=== PATIENT | male | born 1940 | race Caucasian/White ===

== ENCOUNTER 2019-02-22 11:41 | Emergency (ER) | payer MEDICARE, SELFPAY ==
[2019-02-22 11:42] VITALS: BP 90/56; PULSE 63; RESP 17; RESP 19; TEMP 36.4; O2SAT 97; O2SAT 98; BMI 29.0
--- NOTE | 2019-02-22 11:54 | RAD_ITS ---
STUDY: X-RAY CHEST REASON FOR EXAM: Male, 79 years old. Weakness. TECHNIQUE: Single AP portable view of the chest. COMPARISON: None. FINDINGS: A right-sided ventriculoperitoneal shunt tube is seen. Scattered calcified granulomas. There is no demonstrated pleural abnormality. Normal size heart. Normal mediastinum and arjun. Normal visualized pulmonary arteries. There is atherosclerotic tortuosity of the aortic arch and descending thoracic aorta. There are diffuse degenerative changes of the visualized thoracic spine. Normal visualized ribs, clavicles, and shoulders. There is no demonstrated abnormality of the visualized soft tissue structures of the upper abdomen. RAD/Chest 1 View (Portable) IMPRESSION: Scattered calcified granulomas. The lungs are clear. Electronically Signed: Willis Reynolds, at 14:44 EDT , Service support ,
--- NOTE | 2019-02-22 11:55 | EKG12_ITS ---
Test Reason : Blood Pressure : / mmHG Vent. Rate : 066 BPM Atrial Rate : 066 BPM P-R Int : 178 ms QRS Dur : 104 ms QT Int : 476 ms P-R-T Axes : 081 -13 029 degrees QTc Int : 499 ms Sinus rhythm with Premature atrial complexes Inferior infarct , age undetermined Abnormal ECG Confirmed by RAINE VILLANUEVA, DEMETRIUS ([id number]), editor in chief ROBERT WAYNE ([id number]) on 02/27/2019 8:21:57 AM Referred By: MELISA Confirmed By:DEMETRIUS NI MD
[2019-02-22 11:56] LABS: Bedside Glucose 106 mg/dL (70-110)
--- NOTE | 2019-02-22 11:57 | ED.VISSUMM ---
- ER Visit Summary Date of Service: 02/22/19 Chief Complaint: General weakness History of Present Illness: The patient is a 79 M who presents with general weakness that began today. Patient was at occupational therapy and use the restroom there. Patient came out of the restroom and was sitting at the registration desk when he was weak and bone. states he did not respond verbally to her. Patient has a history of a recent hemorrhagic stroke with right-sided weakness. states he is back to his baseline at this time. Patient denies any chest pain or shortness of breath. Patient denies any nausea or vomiting. Patient denies any recent fevers or chills. states patient did not pass out or lose consciousness. Physical Examination: Vital signs are stable except for slightly low blood pressure of 90/56. Patient is afebrile. Patient is in no acute distress. Oral mucosa is pink and moist. Neck is supple. Trachea is midline. There is no JVD. Heart was regular rate and rhythm with occasional ectopics. Lungs are clear and equal bilaterally. There is good respiratory effort noted. Abdomen is soft. Bowel sounds are normal. There is no tenderness. Cranial nerves II through XII are intact. There is right-sided weakness from prior CVA. There are no new focal neuro deficits noted. Test Results: CBC shows a mild anemia with a hemoglobin of 11.0 hematocrit of 33.8. Comprehensive metabolic profile was normal. Urinalysis does not show any evidence of urinary tract infection. Troponin was normal. Chest x-ray was obtained. There is no acute infiltrate. Emergency Department Course and Treatment: Patient was given IV fluids here. Patient felt better on reevaluation. Patient was instructed to follow-up with his primary care physician in 3 to 5 days for further evaluation. Patient understood and was agreeable with plan. All questions were answered. Disposition: Discharge home Impression: 1. Near syncope This note was generated with [employer] dictation software. It may contain incorrect words, spelling, and punctuation that were not noted in review of the chart prior to signing ED Disposition - Plan for ED Patient: Disposition: Home or Assisted Living Diagnosis: Near syncope Instructions: ED Near Syncope Unkn Referrals: Ross Ko MD [Primary Care Provider] - 3-5 Days
--- NOTE | 2019-02-22 12:00 | ED.DCSUM_ITS ---
- ER Visit Summary Date of Service: 02/22/19 Chief Complaint: General weakness History of Present Illness: The patient is a 79 M who presents with general weakness that began today. Patient was at occupational therapy and use the restroom there. Patient came out of the restroom and was sitting at the scar stration desk when he was weak and bone. states he did not respond verbally to her. Patient has a history of a recent hemorrhagic stroke with right-sided weakness. states he is back to his baseline at this time. Patient denies any chest pain or shortness of breath. Patient denies any nausea or vomiting. Patient denies any recent fevers or chills. states patient did not pass out or lose consciousness. Physical Examination: Vital signs are stable except for slightly low blood pressure of 90/56. Patient is afebrile. Patient is in no acute distress. Oral mucosa is pink and moist. Neck is supple. Trachea is midline. There is no JVD. Heart was regular rate and rhythm with occasional ectopics. Lungs are clear and equal bilaterally. There is good respiratory effort noted. Abdomen is soft. Bowel sounds are normal. There is no tenderness. Cranial nerves II through XII are intact. There is right-sided weakness from prior CVA. There are no new focal neuro deficits noted. Test Results: CBC shows a mild anemia with a hemoglobin of 11.0 hematocrit of 33.8. Comprehensive metabolic profile was normal. Urinalysis does not show any evidence of urinary tract infection. Troponin was normal. Chest x-ray was obtained. There is no acute infiltrate. Emergency Department Course and Treatment: Patient was given IV fluids here. Patient felt better on reevaluation. Patient was instructed to follow-up with his primary care physician in 3 to 5 days for further evaluation. Patient understood and was agreeable with plan. All questions were answered. Disposition: Discharge home Impression: 1. Near syncope This note was generated with [employer] dictation software. It may contain incorrect words, spelling, and punctuation that were not noted in review of the chart prior to signing ED Disposition - Plan for ED Patient: Disposition: Home or Assisted Living Diagnosis: Near syncope Instructions: ED Near Syncope Unkn Referrals: Ross Ko MD [Primary Care Provider] - 3-5 Days
--- NOTE | 2019-02-22 12:02 | NURSING ---
NO OLD EKGS
[2019-02-22 12:06] VITALS: BP 102/48; PULSE 70; RESP 15; O2SAT 97
[2019-02-22 12:21] LABS: Absolute Lymphocyte Count 1.42 X10^3/ul (0.83-4.51); Basophil# 0.02 X10^3/uL; Basophil% 0.2 % (0-1); Eosinophil# 0.14 X10^3/uL; Eosinophils% 1.5 % (0-5); Hematocrit 33.8 % (40-54); Lymphocyte # 1.42 X10^3/ul (4.0); Lymphocyte % 15.4 % (19-41); Mean Corp Hgb Conc 32.5 g/gl (32-36); Mean Corpuscular Hgb 31.7 pg (27.0-32.0); Mean Corpuscular Volume 97.4 fL (80-94); Mean Platelet Vol. 10.8 fl (6.2-12.0); Monocyte# 0.61 X10^3/uL; Monocyte% 6.6 % (0-10); Neutrophil # 7.03 X10^3/uL (2.7-7.7); Platelet Count 305 K/mm3 (150-450); RBC Distribution Width CV 14.2 % (11.6-14.6); RBC Distribution Width SD 48.3 fl (35.1-43.9); Red Blood Count 3.47 M/mm3 (4.6-6.2); White Blood Count 9.3 K/mm3 (4.4-11.0)
[2019-02-22 12:28] LABS: International Normalized Ratio 1.2; POSITIVE COUNT NO; POSITIVE DIFFERENTIAL NO; POSITIVE MORPHOLOGY NO; Prothrombin Time (Protime)PT. 14.5 SECONDS (11.7-14.9)
[2019-02-22 12:29] LABS: Partial Thromboplast Time 29.1 Seconds (24.1-36.2)
[2019-02-22 12:33] LABS: ALB/GLOB Ratio 0.7 RATIO (0.9-2.4); AST(SGOT) 30 U/L (15-37); Alanine Aminotransfer ALT/SGPT 36 U/L (16-61); Albumin, Serum 2.5 g/dL (3.2-5.0); Alkaline Phosphatase 72 U/L (45-117); Anion Gap 6 (5-15); BUN 17 mg/dL (7-18); BUN/Creat Ratio 19.7 RATIO (10-20); Calcium,Total 8.8 mg/dL (8.5-10.1); Chloride 102 mmol/L (98-107); Creatinine, Serum 0.86 mg/dL (0.70-1.30); EST Glomerular Filtration Rate 90 mL/min (>60); Est Glom Filt Rate - Afr Amer 109 mL/min (>60); Estimated Creatinine Clearance 68.51 ml/min; Globulin 3.6 g/dL (2.2-4.2); Glucose 97 mg/dL (74-106); Potassium 4.1 mmol/L (3.5-5.1); Protein, Total 6.1 g/dL (6.4-8.2); Sodium Level 137 mmol/L (136-145)
[2019-02-22 14:00] VITALS: BP 132/74; PULSE 74; RESP 15; O2SAT 97
[2019-02-22 14:30] LABS: Mucous, Urine 0 SEEN /hpf (<or=2+); Red Blood Cells-Urine 0 SEEN /hpf (0-5); Squamous Epithelial Cells - UA 0 SEEN /hpf (0-5)
[2019-02-22 14:38] LABS: Color, Urine Yellow (Yellow); Glucose, Dipstick Normal (Normal); Ketone-Dipstick Negative (Negative); Leukocyte Esterase-Dipstick 100 /ul (Negative); Nitrite-Dipstick Negative (Negative); Occult Blood-Urine 10 /ul (Negative); Protein-Dipstick Negative (Negative); Urine Bilirubin Dipstick Negative (Negative); Urine Clarity Sl. Cloudy (Clear); Urine Urobilinogen 1 mg/dl (Normal)
[2019-02-22 14:43] LABS: Bacteria 1+ /hpf (None Seen); White Blood Cells 0-5 SEEN /hpf (0-5)
[2019-02-22 16:24] VITALS: BP 145/68; PULSE 80; RESP 19; O2SAT 98
== END 2019-02-22 16:25 | disposition home or self-care (01) ==
PROVIDERS: Emergency Provider Emergency Medicine; Family Provider Family Medicine; PCP Family Medicine
DX: R55 Syncope and collapse (principal); I69.351 Hemiplegia and hemiparesis following cerebral infarction affecting right dominant side; D64.9 Anemia, unspecified; I49.1 Atrial premature depolarization; I48.91 Unspecified atrial fibrillation; Z79.899 Other long term (current) drug therapy
CPT/HCPCS: 71045; 80053; 81001; 82962; 84484; 85025; 85610; 85730; 93005; 99285; J7030; J7040; A4216

== ENCOUNTER 2019-06-04 20:26 | Emergency (ER) | payer OTHER, SELFPAY ==
[2019-06-04 20:27] VITALS: BP 146/87; PULSE 59; RESP 18; TEMP 36.7; O2SAT 100; BMI 24.7
--- NOTE | 2019-06-04 22:05 | ED.RN ---
PATIENT CAME IN VIA [facility] FROM [facility] C/O LOW BLOOD PRESSURE. ON ARRIVAL THE PATIENT'S VITALS WERE STABLE. PATIENT DID NOT HAVE ANY SYMPTOMS AT THIS TIME. HIS TOLD THIS NURSE THAT IT WOULD BE MORE UNCOMFORTABLE FOR HIM TO WAIT FOR A ROOM, SO THEY DECIDED TO LEAVE. I LOOKED AT THE TRACKER AND A ROOM WAS OPENING UP WITHIN A FEW MINUTES. I LET THEM KNOW THIS AND THEY STILL DECIDED TO LEAVE.
== END 2019-06-04 22:07 | disposition left against medical advice (07) ==
LOC: ED 21:19
PROVIDERS: Emergency Provider Emergency Medicine; Family Provider Family Medicine; PCP Family Medicine
DX: Z53.21 Procedure and treatment not carried out due to patient leaving prior to being seen by health care provider (principal)
CPT/HCPCS: 99281; J7030

== ENCOUNTER 2019-06-11 15:11 | Observation (INO) | payer MEDICARE, SELFPAY ==
[2019-06-11] VITALS (8 sets, daily range): BP systolic 115–164; BP diastolic 64–95; PULSE 57–68; RESP 13–18; TEMP 36.8–37; O2SAT 96–100; BMI 25.8; BMI 24.6; BMI 24.7
--- NOTE | 2019-06-11 16:00 | CT_ITS ---
STUDY: CT BRAIN WITHOUT CONTRAST REASON FOR EXAM: Male, 79 years old. Weakness, syncope. RADIATION DOSAGE (If Supplied By Facility): CTDIvol = ( 44.99 ) mGy, DLP = ( 863.60 ) mGycm TECHNIQUE: Transaxial CT imaging of the brain was performed without administration of intravenous contrast material. Individualized dose optimization techniques were used for this CT. COMPARISON: No relevant priors. FINDINGS: Normal soft tissue structures. Normal calvarium. There is moderate cerebral atrophy with widening of the extra-axial spaces and ventricular dilatation. There are areas of decreased attenuation within the white matter tracts of the supratentorial brain, consistent with microvascular disease changes. Ventricular shunt terminates in the right lateral ventricle. There is no intracranial hemorrhage. There are no findings of an acute ischemic infarction. Trace mucosal thickening in the left maxillary sinus. Sinuses are otherwise clear. CT/Brain/Head without Contrast IMPRESSION: 1. No acute findings. 2. Microvascular ischemia. Atrophy. Electronically Signed: Sandi Curtis MD at 17:32 EDT Tel , Service support ,
--- NOTE | 2019-06-11 16:02 | EKG12_ITS ---
Test Reason : SYNCOPE Blood Pressure : / mmHG Vent. Rate : 054 BPM Atrial Rate : 054 BPM P-R Int : 194 ms QRS Dur : 092 ms QT Int : 490 ms P-R-T Axes : 085 -22 021 degrees QTc Int : 464 ms Sinus bradycardia Otherwise normal ECG Confirmed by SABAS VILLANUEVA, BG ([id number]), manuscript editor ROBERT WAYNE ([id number]) on 06/13/2019 10:48:08 AM Referred By: Kath Fox Confirmed By:BG OBREGON MD
--- NOTE | 2019-06-11 16:07 | RAD_ITS ---
STUDY: X-RAY CHEST REASON FOR EXAM: Male, 79 years old. Syncope. Hypoxic. TECHNIQUE: Portable chest. COMPARISON: 02/22/2019. FINDINGS: Shunt tubing is projected over the visualized neck and chest. Tubing is not seen in the abdomen. The lungs are clear and expanded. There is no demonstrated pleural abnormality. Normal size heart. Normal mediastinum and arjun. Normal visualized pulmonary arteries. Normal visualized aortic arch and descending thoracic aorta. Normal visualized thoracic spine. Normal visualized ribs, clavicles, and shoulders. There is no demonstrated abnormality of the visualized soft tissue structures of the upper abdomen. RAD/Chest 1 View (Portable) IMPRESSION: No acute cardiopulmonary disease. Electronically Signed: Sandi Curtis MD at 16:40 EDT Tel , Service support ,
[2019-06-11 16:38] LABS: Absolute Lymphocyte Count 1.32 X10^3/uL (0.83-4.51); Absolute Neutrophil Count 3.7 X10^3/uL (2.0-7.7); Basophil# 0.06 X10^3/uL; Basophil% 0.9 % (0-1); Eosinophil# 0.71 X10^3/uL; Eosinophils% 11.2 % (0-5); Hematocrit 40.8 % (40-54); Hemoglobin 13.2 g/dL (13.0-16.5); Lymphocyte # 1.32 X10^3/ul (4.0); Lymphocyte % 20.9 % (19-41); Mean Corp Hgb Conc 32.4 g/dL (32-36); Mean Corpuscular Volume 95.8 fL (80-94); Monocyte# 0.52 X10^3/uL; Monocyte% 8.2 % (0-10); NRBC Flagged by Analyzer 0 % (0-5); Neutrophil # 3.69 X10^3/uL (2.7-7.7); Neutrophil % 58.5 % (47-70); Platelet Count 304 K/mm3 (150-450); RBC Distribution Width CV 12.7 % (11.6-14.6); RBC Distribution Width SD 44.4 fl (35.1-43.9); Red Blood Count 4.26 M/mm3 (4.6-6.2); White Blood Count 6.3 K/mm3 (4.4-11.0)
[2019-06-11 16:58] LABS: AST(SGOT) 47 U/L (15-37); Alanine Aminotransfer ALT/SGPT 69 U/L (16-61); Albumin, Serum 3.3 g/dL (3.2-5.0); Alkaline Phosphatase 77 U/L (45-117); Anion Gap 6 (5-15); BUN 18 mg/dL (7-18); BUN/Creat Ratio 19.7 RATIO (10-20); Bilirubin, Direct 0.12 mg/dL (0.00-0.30); Calcium,Total 8.9 mg/dL (8.5-10.1); Chloride 102 mmol/L (98-107); Creatinine, Serum 0.91 mg/dL (0.70-1.30); EST Glomerular Filtration Rate 85 mL/min (>60); Est Glom Filt Rate - Afr Amer 103 mL/min (>60); Estimated Creatinine Clearance 66.85 ml/min; Globulin 3.7 g/dL (2.2-4.2); Glucose 83 mg/dL (74-106); Potassium 3.9 mmol/L (3.5-5.1); Sodium Level 138 mmol/L (136-145)
[2019-06-11 17:30] LABS: Bacteria 0 SEEN /hpf (None Seen); Mucous, Urine 0 SEEN /hpf (<or=2+); Red Blood Cells-Urine 0 SEEN /hpf (0-5); Squamous Epithelial Cells - UA 0 SEEN /hpf (0-5); White Blood Cells 0 SEEN /hpf (0-5)
[2019-06-11 17:56] LABS: Color, Urine Yellow (Yellow); Glucose, Dipstick Normal (Normal); Ketone-Dipstick Negative (Negative); Leukocyte Esterase-Dipstick Negative /ul (Negative); Nitrite-Dipstick Negative (Negative); Occult Blood-Urine 10 /ul (Negative); Protein-Dipstick Negative (Negative); Urine Bilirubin Dipstick Negative (Negative); Urine Clarity Clear (Clear); Urine Urobilinogen Normal (Normal)
--- NOTE | 2019-06-11 19:20 | PCM.HP.STD ---
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 (4) Paroxysmal atrial fibrillation Status: Chronic (5) Hypertension Status: Chronic History of Present Illness Date of Admission: 06/11/19 Chief Complaint: Near syncope. The patient is a 79 year old M with past medical history as mentioned above presented to the emergency room because of near syncopal episode. Patient's was at the bedside and she provided the information. 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 The patient's mentioned that patient had episode yesterday when he was complaining of significant lightheadedness when he was sitting, very drowsy, became pale, associated with profound generalized weakness and without aggravating or relieving factors. She gave him something to eat and he did improve. She stated that last week, the patient had same episode of significant lightheadedness after he had a bowel movement and during that time, patient was very pale. Patient himself complains of being very lightheaded and about to pass out but he did not pass out. No syncope. He denied any chest pain or palpitation. He had a history of hemorrhagic stroke in October, with resultant right-sided hemiplegia and dysarthria and he was taken off Eliquis that time. In the emergency department, he was afebrile, heart rate has been in the high 50s to 60s, blood pressure was elevated up to 160s systolic, pulse ox is maintained on room air. Routine blood work was unremarkable. EKG revealed sinus bradycardia, normal SD interval, normal QRS, prolonged QTC, no acute ischemic changes or cardiac arrhythmias apart from sinus bradycardia. CT scan brain showed no acute findings. Chest x-ray showed no acute infiltrate, consolidation or effusion. He is being admitted for near syncopal episode likely because of bradycardia which in turn due to medication side effects including amiodarone and Coreg. Past Medical History Past Medical History (Chronic Problems): Chronic Problems (Last Updated 02/06/19 @ 14:38 by Janis Taylor) Hemorrhagic stroke (Chronic) With resultant right side hemiplegia, dysarthria. Paroxysmal atrial fibrillation (Chronic) Hypertension (Chronic) Medical History: Medical History (Last Updated 02/06/19 @ 14:38 by Janis Taylor) Afib I48.91 Back problem M53.9 Stroke I63.9 HTN (hypertension) I10 Allergies No Known Allergies Allergy (Verified 06/11/19 15:12) Home Medications: Ambulatory Orders Medication Instructions Recorded amiodarone 200 mg tablet 200 mg PO BID 02/06/19 amlodipine 2.5 mg tablet 2.5 mg PO DAILY 02/06/19 carvedilol 3.125 mg tablet 3.125 mg PO BID 02/06/19 dorzolamide 2 % eye drops 1 drp OPHTHALMIC TID 02/06/19 doxazosin 1 mg tablet 1 mg PO .COMP;EX 02/06/19 fluorometholone 0.25 % eye 1 drp OPHTHALMIC Q6H 02/06/19 drops,suspension losartan 50 mg tablet 50 mg PO DAILY 02/06/19 Aspirin [Aspirin, Baby] 81 mg PO DAILY@0800 06/11/19 Surgical History: Surgical History (Last Updated 02/06/19 @ 14:38 by Janis Taylor) S/P percutaneous endoscopic gastrostomy (PEG) tube placement Z93.1 Surgical History: - - Back surgery. Psychiatric History: No pertinent psych hx Lives: Spouse/ Significant Other Smoking Status: Never smoker Alcohol: Occasional Drugs: None - *Family History Maternal Family History: Family History (Last Updated 02/06/19 @ 14:40 by Janis Taylor) Mother CVA (cerebral vascular accident) Brother Heart disease History Items: No pertinent history Paternal Family History: Family History (Last Updated 02/06/19 @ 14:40 by Janis Taylor) Mother CVA (cerebral vascular accident) Brother Heart disease History Items: No pertinent history Review of Systems Constitutional: Reports: Weakness. Denies: Anorexia, Chills, Fever Eyes: Denies: Blurred vision, Double vision, Drainage, Redness HEENT: Denies: Difficulty Hearing, Ear Pain, Eye Pain, Nasal Congestion, Sore Throat Cardiovascular: Reports: Light Headedness. Denies: Chest Pain, Chest Pressure, Edema, Palpitations, Syncope Respiratory: Denies: Cough, Pleuritic Pain, Shortness of Breath, Sputum production, Wheezing Gastrointestinal: Denies: Abdominal Pain, Constipation, Diarrhea, Nausea, Vomiting Genitourinary: Denies: Dysuria, Frequency, Hematuria Musculoskeletal: Denies: Arm Pain, Back Pain, Foot Pain Skin: Denies: Dryness, Rash Neurological: Reports: Slurred speech. Denies: Balance problems, Blurred vision, Double vision, Change in Speech, Confusion, Headaches, Incoordination, Numbness Psychiatric: Denies: Anxiety, Depression Endocrine: Denies: Change in Body Habitus, Polydipsia, Polyuria VTE Information - Inpt Only VTE Present on Admission: No VTE Mechan Device Prophylaxis: SCD's VTE Pharm Prophylaxis ordered?: No - Physical Exam General: Alert, Oriented x3, Cooperative, No apparent distress HEENT: Atraumatic, PERRLA, EOMI, Normocephalic Oral: Moist Mucosa, No Gingival or Mucosal Lesions/ Ulcerations Neck: Supple, No JVD, Negative Carotid Bruits, Trachea Midline, Thyroid Normal Size and Texture Lungs: Clear to auscultation, Normal air movement, No rhonchi, No wheeze, No rales Cardiovascular: Regular rate, Regular Rhythm, Normal S1, Normal S2, PMI Normal, Bradycardic Abdomen: Bowel Sounds Present, Soft, Non Tender, Non-Distended, No Hepato-splenomegaly Extremities: No clubbing, No cyanosis, Edema - Trace edema. Skin: No rashes, No breakdown Lymphatic: No Cervical, Supraclavicular, or Inguinal Adenopathy Neurological: Facial Droop - Right-sided facial droop, dysarthria. Right-sided hemiplegia. Psych/Mental Status: Normal Affect, Appropriate, Alert and oriented to time, place, person, mood and affect Vital Signs Temp Pulse Resp BP Pulse Ox 98.2 F 65 16 164/95 H 96 06/11/19 15:12 06/11/19 19:15 06/11/19 19:15 06/11/19 19:15 06/11/19 19:15 Oxygen Delivery Method Room Air Weight: 180 lb Body Mass Index (BMI) 25.8 Finger Stick Blood Glucose 106 Laboratory Tests Past 24 Hrs 06/11/19 06/11/19 06/11/19 15:35 15:35 17:27 WBC 6.3 RBC 4.26 L Hgb 13.2 Hct 40.8 MCV 95.8 H MCH 31.0 MCHC 32.4 RDW Std Deviation 44.4 H RDW Coeff of Jase 12.7 Plt Count 304 MPV 10.0 Immature Gran % (Auto) 0.300 Neut % (Auto) 58.5 Lymph % (Auto) 20.9 Dickinson % (Auto) 8.2 Eos % (Auto) 11.2 H Baso % (Auto) 0.9 Absolute Neuts (auto) 3.7 Absolute Lymphs (auto) 1.32 Nucleated RBC % 0 Sodium 138 Potassium 3.9 Chloride 102 Carbon Dioxide 30.0 Anion Gap 6 BUN 18 Creatinine 0.91 Estim Creat Clear Calc 66.85 Est GFR (MDRD) Af Amer 103 Est GFR (MDRD) Non-Af 85 BUN/Creatinine Ratio 19.7 Glucose 83 Calcium 8.9 Total Bilirubin 0.40 Direct Bilirubin 0.12 AST 47 H ALT 69 H Alkaline Phosphatase 77 Troponin I < 0.015 Total Protein 7.0 Albumin 3.3 Globulin 3.7 TSH 3.00 Urine Color Yellow Urine Clarity Clear Urine pH 7.0 Ur Specific [place] 1.010 Urine Protein Negative Urine Glucose (UA) Normal Urine Ketones Negative Urine Occult Blood 10 H Urine Nitrite Negative Urine Bilirubin Negative Urine Urobilinogen Normal Ur Leukocyte Esterase Negative Urine RBC 0 SEEN Urine WBC 0 SEEN Ur Squamous Epith Cells 0 SEEN Urine Bacteria 0 SEEN Urine Mucus 0 SEEN Clinical Impression(s) from Imaging Studies Brain CT 06/11/19 16:00 IMPRESSION: 1. No acute findings. 2. Microvascular ischemia. Atrophy. Electronically Signed: Sandi Curtis MD at 17:32 EDT Tel , Service support , Chest X-Ray 06/11/19 16:07 IMPRESSION: No acute cardiopulmonary disease. Electronically Signed: Sandi Curtis MD at 16:40 EDT Tel , Service support , Assessment/Plan All Active Problems (Last Updated 02/06/19 @ 14:38 by Janis Taylor) Bradycardia (Acute) Near syncope (Acute) This is an 79 years old male patient presented to the emergency room because of recurrent near syncopal episodes, found to have bradycardia which is probably due to medication side effects and he is being admitted for evaluation and treatment. #1 near syncopal episodes: Recurrent, probably due to bradycardia caused by amiodarone and Coreg. Patient denied any chest pain or shortness of breath. EKG reviewed as above, no acute ischemic changes and no other cardiac arrhythmias apart from sinus bradycardia. Troponin is negative. Chest x-ray and CT brain was unremarkable. TSH was normal. Plan: Admit to PCU for observation, cardiac monitoring, repeat EKG tomorrow morning, hold amiodarone, continue Coreg, Norvasc and losartan. #2 recent history of hemorrhagic stroke: With resultant right-sided hemiplegia and dysarthria. Continue aspirin. #3 hypertension: Blood pressure has been fluctuating, continue Norvasc and Coreg as well as losartan, IV hydralazine PRN. #4 paroxysmal atrial fibrillation: He is in sinus bradycardia. Plan to hold amiodarone, continue Coreg. Patient was taken off Eliquis because he had a recent history of stroke. #5 DVT prophylaxis: SCDs, no chemical prophylaxis because of recent history of hemorrhagic stroke. This note was generated with [employer] dictation software. It may contain incorrect words, spelling, and punctuation that were not noted in checking the note before signing. Code Visit OBSV E&M: 23087 Initial observation care L2
[2019-06-11] MEDS: 0.9% Normal Saline 1,000 ML 100 ML IV (21:35)
[2019-06-11] MEDS: CLARIFY ORDER 1 EACH NOTE (21:36)
[2019-06-11] MEDS: Dorzolamide 2% 10ml Bottle 1 DRP LEFT EYE (21:37)
[2019-06-11] MEDS: Carvedilol 3.125 MG TABLET PO (21:37)
[2019-06-12] VITALS (11 sets, daily range): BP systolic 123–160; BP diastolic 70–89; PULSE 56–68; RESP 14–18; TEMP 36.4–36.9; O2SAT 95–100
--- NOTE | 2019-06-12 01:17 | ED.VISSUMM ---
- ER Visit Summary Date of Service: 06/12/19 Chief Complaint: Near syncope History of Present Illness: The patient is a 79 M who presents emergency department with 2 near syncopal episodes in the past 24 hours. Patient was seen earlier this month following a syncopal episode he had while having a bowel movement. At that time is felt to be vasovagal in nature. He has a history of atrial fibrillation is on amnio and very low-dose carvedilol. He had a intracranial hemorrhage leaving him with deficits. He is originally from [place] but states they have a house in the area and is more appropriate for him to rehab here as he is referring to get around in it. Yesterday they were out of town and he apparently had a near syncope event and felt very weak afterwards and slept for a couple hours and woke up feeling fine. Today he again had a near syncopal episode but this time with his home health aide. Heart was noted to be in the 40s and 50s. But however his blood pressure was noted to be high. He looked pale and was sweaty. Physical Examination: Blood pressure here 115/64 heart rate in the 50s and regular. Gen: Well-nourished well-developed Head: Normocephalic atraumatic Eyes: Perrl EOMI ENT: TMs clear no rhinorrhea moist mucous membranes Neck: Supple no lymphadenopathy no JVD nontender CVS: Regular rate bradycardic rhythm no murmurs normal S1-S2 Respiratory: No distress clear to auscultation bilaterally chest nontender Abdomen: Soft nontender nondistended normal bowel sounds no masses Back: Nontender Extremity: Nontender trace edema Skin: Normal color no rash Neuro: alert orientated ?3 Psych: Normal affect normal mood Test Results: EKG is sinus bradycardia with a rate of 54. CBC is normal. Chemistries negative. Troponin negative. TSH 3. Chest x-ray negative. CT the brain shows no acute findings. Emergency Department Course and Treatment: Patient was observed in the monitor he had some readings as of 4 days but mostly has been in the 60s sinus rhythm. He is on amiodarone and carvedilol. Perhaps this is contributing to his fatigue at this point 's uncomfortable taking him home with things resolving observe him for these couple of episodes that he has had. Impression: 1. Near syncope 2. Bradycardia This note was generated with Dragon dictation software. It may contain incorrect words, spelling, and punctuation that were not noted in review of the chart prior to signing ED Disposition - Plan for ED Patient: Disposition: Acute Care [facility]
[2019-06-12] MEDS: MELATONIN 3 MG TABLET PO ×2 (02:30→21:38)
--- NOTE | 2019-06-12 05:55 | EKG12_ITS ---
Test Reason : AM EKG Blood Pressure : / mmHG Vent. Rate : 058 BPM Atrial Rate : 058 BPM P-R Int : 176 ms QRS Dur : 094 ms QT Int : 484 ms P-R-T Axes : 083 -16 025 degrees QTc Int : 475 ms Sinus bradycardia Otherwise normal ECG When compared with ECG of 22-FEB-2019 12:04, Premature atrial complexes are no longer Present Confirmed by LONNIE VILLANUEVA, ETHAN ([id number]), editor at large ROBERT WAYNE ([id number]) on 06/15/2019 10:36:21 A M Referred By: Kath Fox Confirmed By:HALLEY FLEMING MD
[2019-06-12] MEDS: Dorzolamide 2% 10ml Bottle 1 DRP LEFT EYE ×2 (06:29→21:38)
[2019-06-12] MEDS: Losartan Potassium 50 MG Tablet PO (10:34)
[2019-06-12] MEDS: Aspirin 81 MG TAB.CHEW PO (10:34)
[2019-06-12] MEDS: Carvedilol 3.125 MG TABLET PO ×2 (10:34→21:38)
[2019-06-12] MEDS: amLODIPine 2.5 MG Tablet PO (10:34)
--- NOTE | 2019-06-12 11:50 | PN_ITS ---
Subjective: Patient seen and examined. She was admitted on account of near syncope and was found to be bradycardic on admission. His amiodarone was held still on Coreg. Patient has no complaints this morning and feels well. He stated he actually wants to go home. He denies any lightheadedness or dizziness, palpitations, chest pain, diarrhea vomiting. Review of systems otherwise negative. Labs and vitals reviewed. Vitals/I&O's: Vital Signs Temp Pulse Resp BP Pulse Ox 98.4 F 56 L 14 160/77 H 98 06/12/19 08:15 06/12/19 08:15 06/12/19 08:15 06/12/19 08:15 06/12/19 08:15 Oxygen Delivery Method Room Air Weight: 171 lb 15.369 oz Body Mass Index (BMI) 24.6 Finger Stick Blood Glucose 106 Intake and Output for Last 24 Hours 06/10/19 06/11/19 06/12/19 23:59 23:59 23:59 Intake Total 1240 / 1240 Output Total 1250 / 1250 Balance -10 / -10 General: Alert, Oriented x3, Cooperative, No apparent distress HEENT: Atraumatic, PERRLA, EOMI, Normocephalic Oral: Moist Mucosa Neck: Supple, No JVD, Negative Carotid Bruits Lungs: Clear to auscultation, Normal air movement, No rhonchi, No wheeze Cardiovascular: Regular rate, Regular Rhythm, Normal S1, Normal S2, No murmurs Abdomen: Bowel Sounds Present, Soft, Non Tender Extremities: No clubbing, No cyanosis, No edema, Capillary Refill Less than 3 Seconds Skin: No rashes, No breakdown Musculoskeletal: No Tenderness to Palpation of Joints or Extremities Lymphatic: No Cervical, Supraclavicular, or Inguinal Adenopathy Neurological: Cranial nerves II-XII grossly intact, - - right sided chronic hemiplegia, due to old stroke. Psych/Mental Status: Normal Affect, Appropriate Laboratory Results 06/11/19 15:35: WBC 6.3, RBC 4.26 L, Hgb 13.2, Hct 40.8, MCV 95.8 H, MCH 31.0, MCHC 32.4, RDW Std Deviation 44.4 H, RDW Coeff of Jase 12.7, Plt Count 304, MPV 10.0, Immature Gran % (Auto) 0.300, Neut % (Auto) 58.5, Lymph % (Auto) 20.9, [place] % (Auto) 8.2, Eos % (Auto) 11.2 H, Baso % (Auto) 0.9, Absolute Neuts (auto) 3.7, Absolute Lymphs (auto) 1.32, Nucleated RBC % 0 06/11/19 15:35: Sodium 138, Potassium 3.9, Chloride 102, Carbon Dioxide 30.0, Anion Gap 6, BUN 18, Creatinine 0.91, Estim Creat Clear Calc 66.85, Est GFR (MDRD) Af Amer 103, Est GFR (MDRD) Non-Af 85, BUN/Creatinine Ratio 19.7, Glucose 83, Calcium 8.9, Total Bilirubin 0.40, Direct Bilirubin 0.12, AST 47 H, ALT 69 H , Alkaline Phosphatase 77, Troponin I < 0.015, Total Protein 7.0, Albumin 3.3, Globulin 3.7, TSH 3.00 06/11/19 17:27: Urine Color Yellow, Urine Clarity Clear, Urine pH 7.0, Ur Specific [place] 1.010, Urine Protein Negative, Urine Glucose (UA) Normal, Urine Ketones Negative, Urine Occult Blood 10 H, Urine Nitrite Negative, Urine Bilirubin Negative, Urine Urobilinogen Normal, Ur Leukocyte Esterase Negative, Urine RBC 0 SEEN, Urine WBC 0 SEEN, Ur Squamous Epith Cells 0 SEEN, Urine Bacteria 0 SEEN, Urine Mucus 0 SEEN Diagnostic Data Brain CT 06/11/19 16:00 IMPRESSION: 1. No acute findings. 2. Microvascular ischemia. Atrophy. Electronically Signed: Sandi Curtis MD at 17:32 EDT Tel , Service support , Chest X-Ray 06/11/19 16:07 IMPRESSION: No acute cardiopulmonary disease. Electronically Signed: Sandi Curtis MD at 16:40 EDT Tel , Service support , Current Medications Acetaminophen (Tylenol) 650 mg PO Q6H PRN PRN PRN Reason: Mild Pain (1-3)/Temp > 100.7 F Amlodipine Besylate (Norvasc) 2.5 mg PO DAILY [facility] Last Admin: 06/12/19 10:34 Dose: 2.5 mg Documented by: Aspirin (Aspirin, Baby) 81 mg PO DAILY@0800 [facility] Last Admin: 06/12/19 10:34 Dose: 81 mg Documented by: Carvedilol (Coreg) 3.125 mg PO BID [facility] Last Admin: 06/12/19 10:34 Dose: 3.125 mg Documented by: Dorzolamide HCl (Trusopt) 1 drop LEFT EYE TID [facility] Last Admin: 06/12/19 06:29 Dose: 1 drop Documented by: Doxazosin Mesylate (Cardura) 1 mg PO MoWeFr [facility] Hydralazine HCl (Apresoline Iv) 10 mg IV Q8H PRN PRN PRN Reason: for SBP>160 Losartan Potassium (Cozaar) 50 mg PO DAILY [facility] Last Admin: 06/12/19 10:34 Dose: 50 mg Documented by: Melatonin (Melatonin) 3 mg PO QHS [facility] Last Admin: 06/12/19 02:30 Dose: 3 mg Documented by: Ondansetron HCl (Zofran) 4 mg IV Q8H PRN PRN PRN Reason: NAUSEA/VOMITING Sodium Chloride () 10 - 40 ml IV UD PRN PRN Reason: SALINE FLUSH Medical Necessity - Tobacco Use Smoking Status: Never smoker Tobacco Use: Non-smoker Assessment/Plan All Active Problems (Last Updated 02/06/19 @ 14:38 by Janis Taylor) Bradycardia (Acute) Near syncope (Acute) 1. Near syncope due to bradycardia * amiodarone on hold; on Coreg * CT of the brain was negative and TSH was WNL.EKG showed only bradycardia * PT/OT on board * fall precautions * 2. Hypertension: on coreg and amlodipine as well as losartan. BP is in 160s systolic. IV hydralazine prn 3. 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 Continue p.o. aspirin. 4. Paroxysmal A. fib: Currently bradycardic. Heart rate is 56 at time of review. Hold amiodarone and continue Coreg. Eliquis stopped on account of recent hemorrhagic stroke. DVT prophylaxis: SCDs. Code Visit OBSV E&M: 82139 Subsequent observation care L3
[2019-06-13 02:59] VITALS: PULSE 64
[2019-06-13 03:30] VITALS: BP 146/75; PULSE 63; RESP 16; TEMP 36.8; O2SAT 96
[2019-06-13] MEDS: Dorzolamide 2% 10ml Bottle 1 DRP LEFT EYE (05:53)
[2019-06-13 06:43] LABS: Absolute Lymphocyte Count 1.72 X10^3/uL (0.83-4.51); Absolute Neutrophil Count 3.8 X10^3/uL (2.0-7.7); Basophil# 0.06 X10^3/uL; Basophil% 0.9 % (0-1); Eosinophil# 0.74 X10^3/uL; Eosinophils% 10.8 % (0-5); Hematocrit 39.9 % (40-54); Hemoglobin 12.9 g/dL (13.0-16.5); Lymphocyte # 1.72 X10^3/ul (4.0); Mean Corp Hgb Conc 32.3 g/dL (32-36); Mean Corpuscular Hgb 30.1 pg (27.0-32.0); Mean Platelet Vol. 9.8 fl (6.2-12.0); Monocyte# 0.57 X10^3/uL; Monocyte% 8.3 % (0-10); NRBC Flagged by Analyzer 0 % (0-5); Neutrophil # 3.75 X10^3/uL (2.7-7.7); Neutrophil % 54.6 % (47-70); Platelet Count 262 K/mm3 (150-450); RBC Distribution Width CV 12.9 % (11.6-14.6); RBC Distribution Width SD 44.1 fl (35.1-43.9); Red Blood Count 4.29 M/mm3 (4.6-6.2); White Blood Count 6.9 K/mm3 (4.4-11.0)
[2019-06-13 06:44] VITALS: PULSE 58
[2019-06-13 06:54] LABS: Anion Gap 4 (5-15); BUN 17 mg/dL (7-18); BUN/Creat Ratio 19.5 RATIO (10-20); Calcium,Total 9.4 mg/dL (8.5-10.1); Chloride 104 mmol/L (98-107); Creatinine, Serum 0.87 mg/dL (0.70-1.30); EST Glomerular Filtration Rate 89 mL/min (>60); Est Glom Filt Rate - Afr Amer 108 mL/min (>60); Estimated Creatinine Clearance 69.92 ml/min; Glucose 107 mg/dL (74-106); Potassium 3.7 mmol/L (3.5-5.1); Sodium Level 138 mmol/L (136-145)
[2019-06-13 07:20] VITALS: O2SAT 96
[2019-06-13 09:08] VITALS: BP 149/78; PULSE 65; RESP 16; TEMP 36.8; O2SAT 96
[2019-06-13] MEDS: Doxazosin 1 MG Tablet PO (09:13)
[2019-06-13] MEDS: Carvedilol 3.125 MG TABLET PO (09:13)
[2019-06-13] MEDS: amLODIPine 2.5 MG Tablet PO (09:14)
[2019-06-13] MEDS: Aspirin 81 MG TAB.CHEW PO (09:14)
[2019-06-13] MEDS: Losartan Potassium 50 MG Tablet PO (09:14)
--- NOTE | 2019-06-13 11:40 | DCINST_ITS ---
You will use the following diet at home:: Cardiac Your food should be the consistency of: Regular Your liquids should be the consistency of: Regular/Thin Discharge Activity: Return to Normal Activity Weight Bearing Status: Weight bearing as tolerated Call your doctor if you observe: Shortness of breath, Dizziness, Fainting spells Instructions: NEAR SYNCOPE, Unknown, Possible Causes of Dizziness or Fainting Additional Instructions: amiodarone stopped o/a of bradycardia. Please follow up with PCP and senior coldfusion developer to determine if, and when amiodarone should be restarted. Allergies/Adverse Reactions: Allergies No Known Allergies Allergy (Verified 06/11/19 15:12) Medications to take at Discharge amlodipine 2.5 mg tablet 2.5 mg PO DAILY 02/06/19 carvedilol 3.125 mg tablet 3.125 mg PO BID 02/06/19 dorzolamide 2 % eye drops 1 drp OPHTHALMIC TID 02/06/19 doxazosin 1 mg tablet 1 mg PO .COMP;EX 02/06/19 fluorometholone 0.25 % eye drops,suspension 1 drp OPHTHALMIC Q6H 02/06/19 losartan 50 mg tablet 50 mg PO DAILY 02/06/19 Aspirin [Aspirin, Baby] 81 mg PO QHS 06/11/19 Ibuprofen [Motrin] 600 mg PO QHS PRN 06/11/19 prednisoLONE eye drops (5 mL) [Pred Forte eye drops (5 mL)] 1 drp LEFT EYE DAILY 06/11/19 Primary Care Physician: Ross Ko MD [Primary Care Provider] - Please follow up with your Primary Care Physician in: one week Test Results: Test results from this visit will be discussed in further detail at your follow- up appointment, if applicable. Proposed Discharge Date: 06/13/19
--- NOTE | 2019-06-13 11:42 | DS.PCM_ITS ---
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 Paroxysmal atrial fibrillation (Chronic) Hypertension (Chronic) Hospital Course and Treatment Imaging Results: Diagnostic Data Brain CT 06/11/19 16:00 IMPRESSION: 1. No acute findings. 2. Microvascular ischemia. Atrophy. Electronically Signed: Sandi Curtis MD at 17:32 EDT Tel , Service support , Chest X-Ray 06/11/19 16:07 IMPRESSION: No acute cardiopulmonary disease. Electronically Signed: Sandi Curtis MD at 16:40 EDT Tel , Service support , Operations: None Procedures: None Summary of Care Provided: The patient is a 79 year old M with a past medical history of hemorrhagic stroke with resultant right-sided hemiplegia and dysarthria, paroxysmal A. fib and hypertension. He was admitted through the ED on 06/11/2019 on account of a near syncopal episode. On the day of admission, patient had been noted to be weak and lethargic and was noted that his heart rate was in the mid 40s and blood pressure was elevated in the 170s systolic. He had also had an episode of significant lightheadedness and weakness on the day before admission. Patient had been on Eliquis for A. fib but this was stopped in October 2018 after he had a hemorrhagic CVA. In the ED, heart rate was in the 50s to 60s and blood pressure was in the 160s systolic. CBC and BMP were unremarkable and EKG showed sinus bradycardia. CT of the brain was negative for any acute intracranial findings and chest x-ray was also normal. He was admitted and managed for near syncope likely due to bradycardia which was also likely medication induced. His amiodarone was stopped. Bradycardia resolved and patient remained stable. Blood pressure control also improved somewhat. He remained stable and was discharged home on 06/13/2019. Amiodarone was discontinued for now and is to follow-up with his primary care doctor and middle or intermediate school principal to determine about need for resuming amiodarone and went to do so. He is to continue his Coreg. Patient seen and examined prior to discharge. He had no complaints and felt well. Review of systems is otherwise negative. Labs and vitals reviewed. Home medications reviewed and reconciled. O/e: Vital Signs Height 5 ft 10 in Weight: 171 lb 15.369 oz Weight in Pounds 172.0 lbs Pulse Ox 96 Temperature 98.2 F Pulse Rate 65 Respiratory Rate 16 Blood Pressure 149/78 Blood Pressure Position Semi-Fowlers [] General: Alert, Oriented x3, Cooperative, No apparent distress HEENT: Atraumatic, PERRLA, EOMI, Normocephalic Oral: Moist Mucosa Neck: Supple, No JVD, Negative Carotid Bruits Lungs: Clear to auscultation, Normal air movement, No rhonchi, No wheeze Cardiovascular: Regular rate, Regular Rhythm, Normal S1, Normal S2, No murmurs Abdomen: Bowel Sounds Present, Soft, Non Tender Extremities: No clubbing, No cyanosis, No edema, Capillary Refill Less than 3 Seconds Skin: No rashes, No breakdown Musculoskeletal: No Tenderness to Palpation of Joints or Extremities Lymphatic: No Cervical, Supraclavicular, or Inguinal Adenopathy Neurological: Cranial nerves II-XII grossly intact, - - right sided chronic hemiplegia, due to old stroke, with dysarthria Psych/Mental Status: Normal Affect, Appropriate Plan as above. - Physical Exam Vital Signs Temp Pulse Resp BP Pulse Ox 98.2 F 65 16 149/78 H 96 06/13/19 09:08 06/13/19 09:08 06/13/19 09:08 06/13/19 09:08 06/13/19 09:08 Oxygen Delivery Method Room Air Weight: 171 lb 15.369 oz Body Mass Index (BMI) 24.6 Finger Stick Blood Glucose 106 Intake and Output for Last 24 Hours 06/11/19 06/12/19 06/13/19 23:59 23:59 23:59 Intake Total 1300 / 1300 Output Total 3125 / 3125 125 / 125 Balance -1825 / -1825 -125 / -125 Laboratory Tests Past 24 Hrs 06/13/19 06/13/19 06:15 06:15 WBC 6.9 RBC 4.29 L Hgb 12.9 L Hct 39.9 L MCV 93.0 MCH 30.1 MCHC 32.3 RDW Std Deviation 44.1 H RDW Coeff of Jase 12.9 Plt Count 262 MPV 9.8 Immature Gran % (Auto) 0.400 Neut % (Auto) 54.6 Lymph % (Auto) 25.0 [place] % (Auto) 8.3 Eos % (Auto) 10.8 H Baso % (Auto) 0.9 Absolute Neuts (auto) 3.8 Absolute Lymphs (auto) 1.72 Nucleated RBC % 0 Sodium 138 Potassium 3.7 Chloride 104 Carbon Dioxide 30.0 Anion Gap 4 L BUN 17 Creatinine 0.87 Estim Creat Clear Calc 69.92 Est GFR (MDRD) Af Amer 108 Est GFR (MDRD) Non-Af 89 BUN/Creatinine Ratio 19.5 Glucose 107 H Calcium 9.4 Discharge Diet: Low fat/ Low Cholesterol Discharge Activity: Return to Normal Activity Weight Bearing Status: Weight bearing as tolerated Call your doctor if you observe: Shortness of breath, Dizziness, Fainting spells Home Medications: Medications to take at Discharge amlodipine 2.5 mg tablet 2.5 mg PO DAILY 02/06/19 carvedilol 3.125 mg tablet 3.125 mg PO BID 02/06/19 dorzolamide 2 % eye drops 1 drp OPHTHALMIC TID 02/06/19 doxazosin 1 mg tablet 1 mg PO .COMP;EX 02/06/19 fluorometholone 0.25 % eye drops,suspension 1 drp OPHTHALMIC Q6H 02/06/19 losartan 50 mg tablet 50 mg PO DAILY 02/06/19 Aspirin [Aspirin, Baby] 81 mg PO QHS 06/11/19 Ibuprofen [Motrin] 600 mg PO QHS PRN 06/11/19 prednisoLONE eye drops (5 mL) [Pred Forte eye drops (5 mL)] 1 drp LEFT EYE DAILY 06/11/19 Primary Care Physician: Ross Ko MD [Primary Care Provider] - Please follow up with your Primary Care Physician in: one week Patient Instructions: Possible Causes of Dizziness or Fainting, NEAR SYNCOPE, Unknown Disposition: Home with Home Health Minutes spent on discharge:: 40 Patient Condition:: Stable Medical Necessity - Tobacco Use Smoking Status: Never smoker Tobacco Use: Non-smoker Meaningful Use Info Meaningful Use Diagnoses (Choose all that apply): None applicable Code Visit OBSV E&M: 90513 Observation care discharge
--- NOTE | 2019-06-13 11:42 | CASEMGMT ---
Case Management Progress Note: This commercial underwriter went to bedside and patient resting, ,easily aroused to verbal stimuli. Explained and provided the VERGARA form in regards to his treatment for near syncope. Notified patient that Outpatient billing is determined by his insurance plan and status during hospital stay is reviewed for change in his condition that may warrant inpatient stay. Patient states understanding, unable to sign form d/t H/o stroke with Right side deficit- his writing hand. This commercial underwriter called patient Jessica on cell phone listed on Demographics and explained all of above, states understanding and consents. No further questions or concerns regarding VERGARA form. Patient states that assists him and has private pay help at home. This commercial underwriter clarified home status with Jessica on phone and states that she is much younger than the patient and assists with patients daily ADLs, states they private pay for three FIELD SALES TRAINER that assist, patient gets therapy 3 times/week and they work with patient even on off days. States baseline is in a chair a lot but does walk with a walker approx 100-120ft and has a person stand by in case needs to assistance. States has been improving even with RUE strength. Dneies any additional needs, issues or concerns with DC planning at this time. Bailee Marcum RNCM
--- NOTE | 2019-06-13 12:48 | PHA.DC.MR ---
Pharmacy Service has performed discharge medication reconciliation for this patient. No new medications Home Medications amlodipine 2.5 mg tablet 2.5 mg PO DAILY 02/06/19 carvedilol 3.125 mg tablet 3.125 mg PO BID 02/06/19 dorzolamide 2 % eye drops 1 drp OPHTHALMIC TID 02/06/19 doxazosin 1 mg tablet 1 mg PO .COMP;EX 02/06/19 fluorometholone 0.25 % eye drops,suspension 1 drp OPHTHALMIC Q6H 02/06/19 losartan 50 mg tablet 50 mg PO DAILY 02/06/19 Aspirin [Aspirin, Baby] 81 mg PO QHS 06/11/19 Ibuprofen [Motrin] 600 mg PO QHS PRN 06/11/19 prednisoLONE eye drops (5 mL) [Pred Forte eye drops (5 mL)] 1 drp LEFT EYE DAILY 06/11/19 The patient's discharge medication list was reviewed for discrepancies and discrepancies were resolved.
[2019-06-13 13:23] VITALS: BP 117/70; PULSE 64; RESP 16; TEMP 36.8; O2SAT 98
== END 2019-06-13 11:41 | disposition home health service (06) ==
LOC: ED 16:25 → PCU 19:20
PROVIDERS: Admitting Provider Hospitalist; Emergency Provider Emergency Medicine; Family Provider Family Medicine; PCP Family Medicine; Referring Provider Hospitalist; Visit Provider Student in an Organized Health Care Education/Training Program
DX: R55 Syncope and collapse (principal); I48.0 Paroxysmal atrial fibrillation; I69.322 Dysarthria following cerebral infarction; I69.351 Hemiplegia and hemiparesis following cerebral infarction affecting right dominant side; I10 Essential (primary) hypertension; Z79.899 Other long term (current) drug therapy; Z79.82 Long term (current) use of aspirin; Z79.52 Long term (current) use of systemic steroids
CPT/HCPCS: 36415; 70450; 71045; 80048; 80076; 81001; 84443; 84484; 85025; 93005; 96360; 96361; 97110; 97163; 97166; 99218; 99285; J7030; A4216; G0378

== ENCOUNTER 2019-06-18 13:00 | Outpatient (RCR) | payer OTHER, SELFPAY ==
--- NOTE | 2019-01-17 15:18 | HP.PTEVAL_ITS ---
Patient's Visit Information GABRIELA REEVES is a 78 year old M referred to Physical Therapy by RHONDA AMHAJAN with a diagnosis of Thalamic hemmorrage. Date of Evaluation: 01/17/19 Physical Therapist: Darin Ventura, PT, ATC - Visit Plan Frequency: 2-3x /Week Duration: 6 Weeks Plan: R LE stretching and strengthening, balance and proprio, sit to stand at // bars, nustep, and HEP - Subjective Findings: Pt reports he had a thalamic hemmorage on 11/08/18. Pt was in ICU for 4 weeks, and then went to the inpatient unit for 5 weeks. Pt reports he was released from there on 01/11/19. Pt reports he has come a long way since the stroke. Pt reports his speech was affected and he has R sided weakness. Pt reports he was very active and exercised daily prior to this event. Pt reports he just started moving his leg today, and had movement from the knee down 2 weeks ago. Pt reports he is getting speechand occupational therapy for his other ailments. Pt is improving with transfers, but is still a 2 person transfer at home. Pt did have LB surgery in 2010 and occasionally has LBP - Objective Neuro: R LE is numb to light touch. L LE is WNL. B patellar reflex= 1/3. MMT: L LE 4/5 throughout, R LE 1/5 throughout. Transfers: Pt requires max A x 1 sit to stand. Gait: Unable to assess at this time - Goals Goal 1:: Increase B LE strength x 1 grade to aid with transfers Goal Time Frame: 4-6 Weeks Goal 2:: Pt will be able to transfer sit to stand with mod A x 1 to aid with I Goal Time Frame: 4-6 Weeks Goal 3:: I with HEP Goal Time Frame: 4-6 Weeks - Rehabilitation Potential Physical Therapy Diagnosis: Pt has R sided weakness and difficulty with all transfers secondary to thalamic hemorrage Rehabilitation Potential: Good - Anticipated Interventions Patient/Client Instruction: Educate patient on: Condition, Plan of Care For the Purpose of:: To improve self management Therapeutic Exercise to Include: Strength training, Endurance training, Balance training, Postural training, Flexibilty training, Gait and locomotor training, Dynamic Lumbar Stabilization For the Purpose of:: To increase ROM, To improve muscle performance and motor function, To improve gait and locomotor functions Thank you for the opportunity to evaluate your patient. For Medicare and Medicare HMO plans, please review the plan of care and approve it. It will need to be FAXED BACK to us at [phone] for Medicare purposes. For Medicare only, by signing this I certify the plan of care. Please let me know if there are questions or concerns regarding this plan of care. Physician Signature: Date:
--- NOTE | 2019-01-18 15:51 | HP.OTEVAL ---
Patient's Visit Information GABRIELA REEVES is a 78 year old M, referred to Occupational Therapy by RHONDA MAHAJAN, with a diagnosis of Thalamic hemorrhage R sided weakness. Date of Evaluation: 01/17/19 Occupational Therapist: Jackie Petty - Subjective Subjective: Pt seen for initial occupational therapy evaluation after suffer thalamic hemorrhage, rt sided weakness. Non traumatic intracerebral hemorrhage. He was found unconscious at home by pari mutuel ticket cashier 11/08/18 brought to hospital with large L side intraparenchymal hemorrhage from thalamus to L temporal lobe w/ vasogenic edema. 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 He spent 4 wks in ICU, then inpatient rehab in [place] (PT/OT/ST) until last 01/11/19. Now getting around in custom w/c. Lives w/ spouse in a 1 story house with 2 lifts to enter house, all one level once inside. Walk in shower, HHS, shower chair, BSC. Pt requires increased assist w/ all BADLs/IADLs. R hand dominent. Hobbies; hunting, fishing, traveling, reading, birding very active. Wears supportive shoulder brace R shoulder secondary to slight subluxed shoulder, wears isometric glove R hand to assist with decreasing edema and wears full splint R hand at night for positioning. AFO R foot. Spouse present for entire session. - Pain R arm 2 Pain Intensity Range: 2 - Objective Objective/Observation: limited functional use R UE, limited ROM and strength R UE, pain with movement R side - ROM Shoulder: R PROM shoulder flex 0/90', shldr abd 40 L AROM shldr flex 140 abd 105 Elbow: R PROM -30/115 L AROM 0/127 Wrist: R PROM 40/55 L AROM 53/87 ROM Comments: R UE all PROM, increased pain to supinate, R digits all PROM WFL. 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 L UE generalized MMT 4/5 - Edema Other: Edema noted R elbow, hand, digits - Sensation Sensation Comments: Numbness tingling R UE - Quick DASH-Disab of Arm,Shoulder& Hand Quick DASH Score: 72.7250 - Goals Goal:: Pt will progress w/ R UE generalized strength 3/5 to assist with UB dressing tasks. Goal:: Pt will progress w/ R elbow extension PROM by 30' to assist w/ BADL tasks. Pt will progress w/ R wrist AROM flexion by 10' to assist w/ BADL tasks. Goal:: Pt will demo minimal pain R shoulder w/ movement no pain greater than 1/10 by d/c from OT services. Goal:: Pt will be able to complete UB dressing tasks with moderate assist using AE as needed. Goal:: Pt/spouse will be educated on R UE HEP with good understanding and demo 100%x. Goal:: Pt/spouse will be educated on energy conservation techniques, adaptive techniques, DME/AE to assist w/ decreased functional use of R UE for BADL tasks with good understanding and demo 100%x. - Rehabilitation General Assessment: Pt demo decreased functional use of R UE all planes, pt has minimal AROM R UE shoulder shruggs only and pain to passively move R UE. Pt demo decreased independence with BADLs/IADLs, functional transfers requiring increased assist for all tasks. Pt demo decreased strength R UE. Pt would benefit from direct occupational therapy services to increase functional use of R UE all joints with increasing ROM, strength R UE, and increase indep w/ BADL tasks, educate pt/spouse on RUE HEP to increase pt's quality of life. Rehabilitation Potential: Good - Anticipated Interventions Anticipated Interventions: A/AAROM/PROM, Strengthening, Edema Control, Massage, Modalities, Orthoses, Joint Protection/Energy Conservation, Fine Motor Coord/Aldo, Neuro Reeducation, ADL Training, Education re assistive Equipment, Education re Diagnosis, Education re Correct Donning Tech,Care&Wearing Sched Comp Garments, Caregiver Training, Home Program - Visit Plan Frequency: 3x /Week Duration: 6 Weeks General Plan: increase functional use of R UE, incraese R UE PROM/AROM, increase R UE strength, educate on R UE HEP, educate on adaptive techniques, DME/AE for BADLs, increase independence with BADL tasks, decrease pain R UE with movement. TEXT: Thank you for the opportunity to evaluate your patient. For Medicare and Medicare HMO plans, please review the plan of care and approve it. It will need to be FAXED BACK to us at [phone] for Medicare purposes. Please let me know if there are questions or concerns regarding this plan of care. Physician Signature: Date:
--- NOTE | 2019-01-29 14:57 | HP.SP.AD_ITS ---
History - History Date of Eval: 01/16/19 Medical Diagnosis (from RX): Aphasia, Dysphagia, Dysarthria Date of Onset of Diagnosis: 11-08-18 Previous speech therapy: Yes Results: 4 weeks ICU and 5 weeks at inpatient rehab in [place]. Other Relevant Medical History/Diagnoses/Surgery: Pt had large L sided intrapharenchymal hemorrhage from thalamus to L temporal lobe with Basogenic edema and right sided shift. 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 He then had a R frontal ventriculoperitoneal shunt on 11/28. PEG tube placed 11/16/18 but is no longer in use. 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 Right Hearing Abillity: Use of Hearing Aid Left Hearing Abillity: Use of Hearing Aid Visual Assistive Devices: Glasses Patients Living Arrangements: With Significant Other Subjective Oral Motor - Subjective Patient Reports: Slurred Speech Objective Oral Motor - Oral Status Dentition: WNL - Labial Impairment: Mild Observation at Rest: Right Droop Closure: WNL Retraction: WNL Alternating Pucker/Retraction: WNL Involuntary Movement noted: No - Lingual Impairment: WNL Protrusion: WNL Retraction: WNL Lateralization: WNL Involuntary Movement: No - Jaw Impairment: WNL - Respiratory Status Respiratory Status: Room Air Subjective Dysphagia - Current Diet Solids Current Diet: Regular - Current Diet Liquids Current Liquids: [place] Thick [place] free water Protocol: No Objective Dysphagia - Results Swallowing Diagnosis: Oropharyngeal Phase Dysphagia Severity: Moderate Dysphagia Assessment - Impact Impact on Safety & Functioning: Risk for Aspiration - Recommendations Modified Barium Swallow/Cookie Swallow Recommended: Yes Swallowing Treatment: Yes - Diet Texture Recommendations Solids Other: Regular Liquids: [place] Thick - Safety Saftey Precautions/Swallowing Recommendations (Check all that Apply): Small Sips & Bites when Eating, Multiple Swallows, Other (Specify Below) Other: Slow rate. Objective Cog/Ling/Com - Orientation Orientation: Person, Birthdate, Medical Diagnosis - Answer Yes/No Questions Simple: WNL Complex: WNL - Comments Comments: Questions needed to be asked a little slower as it appears his processing speed has been impacted. - Automatic Sequences Automatic Sequences: WNL - Naming Responsive naming: Moderate Naming in categories: Moderate - Conversational Tasks Conversational Tasks: Moderate Objective Dysarthira/Motor - Speech Intelligibility Single Words: Mild Phrases: Moderate Sentences: Moderate - Volume Volume: Moderate - Observation Inconsistent Errors: Yes - Awareness/Strategy Use Uses strategies intermittently to improve intelligibility or listener's understanding of message: Yes - Comments Comments -: Overall, Pt often spoke softly and was looking down. When cued to speak louder and sit up for better breath support then he was able to be intelligible for 75% of utterances. Single words were more clear than lengthier utterances. Plan - Plan Plan: Speech therapy is warranted for moderate dysarthria, moderate oropharyngeal dysphagia and moderate aphasia. - Recommendations Treatment Warranted: Yes - Frequency Frequency: 2x /Week Duration: 10 weeks Visits in this POC: 20 - Prognosis Prognosis: Good - Goals that are Established: Determination:: Goals will be added/modified as deemed necessary and appropriate. Therapy will be discontinued when results of re-evaluation indicate therapy is no longer needed or lack of progress has been documented. - Goal #1-5 Goal #1: Patient will demonstrate 80% intelligibility at the phrase and sentence level with use of strategies on 4/5 trials. Goal #2: Patient will complete word retrieval tasks including but not limited to identification of nouns by features, usage, and labeling on 4/5 trials on 4 consecutive sessions. Goal #3: Patient will expressive basic wants/ needs and/or biolgraphical information x 8-10 per session with moderate cues for 4 consecutive sessions. Goal #4: Further evaluation of dysphagia. Education - Patient has Indicated that the Following Identified Educational Needs: None The Patient has indicated that they have no educational or learning abilities that may effect their care.: Yes - Patient Instruction Patient Education: Treatment Plan, Goals Person Taught: Patient, Family Teaching Method: Discussion Response to teaching: Verbalize understanding, Has Prior Knowledge
--- NOTE | 2019-02-14 16:01 | HP.PTREVAL ---
RHONDA MAHAJAN, It has been my pleasure to treat GABRIELA REEVES over the last 9 visits for Thalamic hemmorrage. Please see the progress note below for an update on the physical therapy plan of care! Subjective: Minor pain this date Objective/Function: MMT: L get is 5/5 kthroughout. R knee ext is 2/5 this date. All other R LE 0/5. Pt is transferring sit to srtand with Eduardo. Pt is I with HEP. Progressing well toward Rx goals Plan Plan: R LE stretching and strengthening, balance and proprio, sit to stand at // bars, nustep, and HEP Goals Goal 1:: Increase B LE strength x 1 grade to aid with transfers Goal Time Frame: 4-6 Weeks Goal Progress: Progressing Goal 2:: Pt will be able to transfer sit to stand with mod A x 1 to aid with I Goal Time Frame: 4-6 Weeks Goal Progress: Goal Met Goal 3:: I with HEP Goal Time Frame: 4-6 Weeks Goal Progress: Goal Met Anticipated Interventions Patient/Client Instruction: Educate patient on: Condition, Plan of Care For the Purpose of:: To improve self management Therapeutic Exercise to Include: Strength training, Endurance training, Balance training, Postural training, Flexibilty training, Gait and locomotor training, Dynamic Lumbar Stabilization For the Purpose of:: To increase ROM, To improve muscle performance and motor function, To improve gait and locomotor functions Please do not hesitate to contact me at [phone] by phone or if you have questions or concerns regarding this new plan of care! Sincerely, Darin Ventura, PT, ATC
--- NOTE | 2019-02-19 14:39 | HP.SP.DC ---
ST Discharge Summary - Discharged: Discharge: Ham Cisneros is discharged from [facility] as of February 192018. He attended a total of 4 session including his initial evaluation on 01/16/19. The focus of therapy was on dysarthria and aphasia strategies initially along with therapeutic tasks for word finding. 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 Also educated on home tasks for family word finding as well as completed family members name recall tasks in sessions. Recommended a MBSS when his is in agreement. requested discharge as she wished for the focus to be on OT and PT outpatient. She reported that she is doing home therapy tasks daily. A copy of this discharge summary will be sent to her referring physician.
--- NOTE | 2019-03-08 18:45 | HP.OTREVAL ---
RHONDA MAHAJAN, It has been my pleasure to treat GABRIELA REEVES over the last 15 visits for Thalamic hemorrhage R sided weakness. Please see the progress note below for an update on the occupational therapy plan of care! Subjective: Pt demo increased edema R hand, pt arrived wearing isotonic glove R hand and shoulder brace R shoulder. Objective/Function: OT Re-eval Pt making progress with OT goals. Pt has been educated on ways to tran/doff shirts and jackets using R arm in sleeve first. Pt progressing with PROM R UE, R shoulder flexion 0/80, R elbow PROM -10/115, R wrist PROM 41/57. Pt is starting to get slight active movement of R thumb and index finger. Pt continues to have increased R shoulder pain at rest and with movement. Pt progressing with ability to stand and complete weightbearing activities to R UE vs sitting. Pt would continue to benefit from direct occupational therapy services to increase ROM R UE, increase functional use of R UE, increase indep w/ BADLs to increase pts quality of life. 3x/wk x 6 wks Plan Frequency: 3x /Week Duration: 6 Weeks Plan: cont w/ prior pOC Goals - Goals Goal:: Pt will progress w/ R UE generalized strength 3/5 to assist with UB dressing tasks. Goal:: Pt will progress w/ R elbow extension PROM by 30' to assist w/ BADL tasks. Pt will progress w/ R wrist AROM flexion by 10' to assist w/ BADL tasks. Goal:: Pt will demo minimal pain R shoulder w/ movement no pain greater than 1/10 by d/c from OT services. Goal:: Pt will be able to complete UB dressing tasks with moderate assist using AE as needed. Goal:: Pt/spouse will be educated on R UE HEP with good understanding and demo 100%x. Goal:: Pt/spouse will be educated on energy conservation techniques, adaptive techniques, DME/AE to assist w/ decreased functional use of R UE for BADL tasks with good understanding and demo 100%x. Anticipated Interventions Anticipated Interventions: A/AAROM/PROM, Strengthening, Edema Control, Massage, Modalities, Orthoses, Joint Protection/Energy Conservation, Fine Motor Coord/Aldo, Neuro Reeducation, ADL Training, Education re assistive Equipment, Education re Diagnosis, Education re Correct Donning Tech,Care&Wearing Sched Comp Garments, Caregiver Training, Home Program Please do not hesitate to contact me at [phone] by phone or if you have questions or concerns regarding this new plan of care! Sincerely, Jackie Petty
--- NOTE | 2019-05-02 13:57 | HP.OTREVAL ---
RHONDA MAHAJAN, It has been my pleasure to treat GABRIELA REEVES over the last 28 visits for Thalamic hemorrhage R sided weakness. Please see the progress note below for an update on the occupational therapy plan of care! Subjective: Pt arrived with mobile ui designer who left during treratment. Objective/Function: OT Re eval= 41 MIN Pt continues to progress w/ OT POC, pt has progressed w/ PROM R shoulder 0/95' and PROM R elbow -10/120'. 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 Pt complete AROM R elbow 50' flexion, 0' extension. Pt would continue to benefit from direct occupational therapy services to increase functional asphalt distributor tender strength to grasp walker, and grab bar and increase indep w/ functional living tasks. Pt would continue to benefit from direct OT services to increase AROM/PROM R UE all joints and decrease pain of R shoulder. Pt overall pain has minimized R shoulder w/ movement. Pt has been educated on R UE HEP with good understanding and demo 100%x. Rec continued OT services 2-3x/wk x 6wks Plan Frequency: 2-3x /Week Duration: 6 Weeks Plan: see Re-Eval Goals - Goals Goal:: Pt will progress w/ R UE generalized strength 3/5 to assist with UB dressing tasks. Goal:: Pt will progress w/ R elbow extension PROM by 30' to assist w/ BADL tasks. Pt will progress w/ R wrist AROM flexion by 10' to assist w/ BADL tasks. Goal:: Pt will demo minimal pain R shoulder w/ movement no pain greater than 1/10 by d/c from OT services. Goal:: Pt will be able to complete UB dressing tasks with moderate assist using AE as needed. Goal:: Pt/spouse will be educated on R UE HEP with good understanding and demo 100%x. Goal:: Pt/spouse will be educated on energy conservation techniques, adaptive techniques, DME/AE to assist w/ decreased functional use of R UE for BADL tasks with good understanding and demo 100%x. Anticipated Interventions Anticipated Interventions: A/AAROM/PROM, Strengthening, Edema Control, Massage, Modalities, Orthoses, Joint Protection/Energy Conservation, Fine Motor Coord/Aldo, Neuro Reeducation, ADL Training, Education re assistive Equipment, Education re Diagnosis, Education re Correct Donning Tech,Care&Wearing Sched Comp Garments, Caregiver Training, Home Program Please do not hesitate to contact me at [phone] by phone or if you have questions or concerns regarding this new plan of care! Sincerely, Jackie Petty
--- NOTE | 2019-05-31 18:28 | OTREVAL_ITS ---
RHONDA MAHAJAN, It has been my pleasure to treat GABRIELA REEVES over the last 36 visits for Thalamic hemorrhage R sided weakness. Please see the progress note below for an update on the occupational therapy plan of care! Subjective: Pt arrived with spouse, spouse stating he is doing well with moving his arm. Objective/Function: Pt making limited progress since last re-eval. Pt gravity eliminated elbow flexion 45' when was 50' flexion last time. Unable to complete elbow flexion against gravity. Pt R shoulder PROM 0/95' and R elbow PROM - 8/130'. Pt demo decreased edema R UE with use of arm sleeve and continues to where shoulder brace R shoulder. Pt continues to work on R UE HEP daily at home to decraese risk of contracute and increase strength R UE. Pt would benefit from direct OT services to continue in order to educate on appropriate gym equipment for exercises RUE and L UE and HEP with education to spouse on assisting with HEP in preparation for d/c from OT services 2x/wk for 2-3wks. Plan Frequency: 2x /Week Duration: 2-3 weeks Plan: see re-eval Goals - Goals Goal:: Pt will progress w/ R UE generalized strength 3/5 to assist with UB d ressing tasks. Goal:: Pt will progress w/ R elbow extension PROM by 30' to assist w/ BADL tasks. Pt will progress w/ R wrist AROM flexion by 10' to assist w/ BADL tasks. Goal:: Pt will demo minimal pain R shoulder w/ movement no pain greater than 1/10 by d/c from OT services. Goal:: Pt/spouse will be educated on appropriate exercise program for in gym with good understanding and demo as well as safety awareness with provided handouts given 75% accuracy by d/c from OT services. Goal:: Pt/spouse will be educated on R UE HEP with good understanding and demo 100%x. Goal:: Pt/spouse will be educated on energy conservation techniques, adaptive techniques, DME/AE to assist w/ decreased functional use of R UE for BADL tasks with good understanding and demo 100%x. Anticipated Interventions Anticipated Interventions: A/AAROM/PROM, Strengthening, Edema Control, Massage, Modalities, Orthoses, Joint Protection/Energy Conservation, Fine Motor Coord/Aldo, Neuro Reeducation, ADL Training, Education re assistive Equipment, Education re Diagnosis, Education re Correct Donning Tech,Care&Wearing Sched Comp Garments, Caregiver Training, Home Program Please do not hesitate to contact me at [phone] by phone or Fax: if you have questions or concerns regarding this new plan of care! Sincerely, Jackie Petty
== END 2019-06-18 19:00 | disposition home or self-care (01) ==
LOC: OT 13:00
PROVIDERS: Family Provider Family Medicine; PCP Family Medicine
DX: I61.9 Nontraumatic intracerebral hemorrhage, unspecified (principal); R13.10 Dysphagia, unspecified; Z86.73 Personal history of transient ischemic attack (TIA), and cerebral infarction without residual deficits
CPT/HCPCS: 92507; 92523; 92526; 97110; 97112; 97140; 97161; 97165; 97166; 97168; 97530

== ENCOUNTER 2019-08-15 10:44 | Outpatient (RCR) | payer MEDICARE, SELFPAY ==
[2019-07-30 14:18] VITALS: BMI 24.6
[2019-08-15 11:17] VITALS: BP 114/66; PULSE 77; RESP 16; TEMP 36.5; BMI 55.3
--- NOTE | 2019-08-15 12:46 | PCM.WC.HP ---
(1) Decubitus ulcer of buttock, stage 2 Status: Acute Current Visit: Yes Code(s): L89.302 - Pressure ulcer of unspecified buttock, stage 2 (2) Hemorrhagic stroke Status: Chronic Current Visit: No Code(s): I61.9 - Nontraumatic intracerebral hemorrhage, unspecified Comment: With resultant right side hemiplegia, dysarthria. (3) Decubitus ulcer of right foot, unstageable Status: Acute Current Visit: Yes Code(s): L89.890 - Pressure ulcer of other site, unstageable History of Present Illness Date of Service: 08/15/19 Chief Complaint: Follow-up on bilateral buttocks cheeks sheering that is developed on both buttocks with scabbing and baseline fungal infection and skin. 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 There is no open area but he has developed a fungal infection. If then suggest a look at his right foot she is concerned about an area on the right lateral under the right little toe. And it is an unstageable necrotic decubitus ulcer from pressure. 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 Paroxysmal atrial fibrillation (Chronic) Hypertension (Chronic) Past Medical History: Bilateral buttocks stage II ulcers. Unstageable ulcer right lateral foot Surgical History: - - Back surgery. Allergies/Adverse Reactions: Allergies No Known Allergies Allergy (Verified 07/30/19 14:16) Home Medications: Ambulatory Orders Medication Instructions Recorded amlodipine 2.5 mg tablet 2.5 mg PO DAILY 02/06/19 carvedilol 3.125 mg tablet 3.125 mg PO BID 02/06/19 doxazosin 1 mg tablet 1 mg PO .COMP;EX 02/06/19 losartan 50 mg tablet 50 mg PO DAILY 02/06/19 Aspirin [Aspirin, Baby] 81 mg PO QHS 06/11/19 Ibuprofen [Motrin] 600 mg PO QHS PRN 06/11/19 acetaminophen 325 mg capsule 325 mg PO Q6H 07/30/19 doxycycline hyclate 100 mg capsule 100 mg PO BID #14 cap 07/30/19 - Family History Maternal Family History: Family History (Last Reviewed 07/30/19 @ 14:18 by Pinky Snyder) Mother CVA (cerebral vascular accident) Brother Heart disease No pertinent history Paternal Family History: Family History (Last Reviewed 07/30/19 @ 14:18 by Pinky Snyder) Mother CVA (cerebral vascular accident) Brother Heart disease No pertinent history Lives: Spouse/ Significant Other Smoking Status: Never smoker Review of Systems Constitutional: Denies: Chills, Fever Eyes: Denies: Blurred vision, Drainage, Pain HEENT: Denies: Difficulty Hearing, Difficulty Swallowing, Sore Throat, Visual Changes Cardiovascular: Denies: Chest Pain, Palpitations, Syncope Respiratory: Denies: Cough, Shortness of Breath Gastrointestinal: Denies: Abdominal Pain, Nausea, Vomiting Genitourinary: Denies: Dysuria, Frequency Musculoskeletal: Denies: Joint Pain, Muscle pain Skin: Reports: - - Ulcers on bilateral buttocks scabbed and right lateral foot. Denies: Jaundice, Rash Neurological: Denies: Balance problems, Change in Speech, Difficulty swallowing, Focal weakness Psychiatric: Denies: Anxiety, Depression Endocrine: Denies: Change in Body Habitus Hematologic/ Lymphatic: Denies: Adenopathy - Physical Exam Vital Signs Temp Pulse Resp BP 97.7 F L 77 16 114/66 08/15/19 11:17 08/15/19 11:17 08/15/19 11:17 08/15/19 11:17 General: Oriented x3, Cooperative, Well developed HEENT: Atraumatic, PERRLA Oral: Moist Mucosa Neck: Supple, No JVD Lungs: Clear to auscultation, Normal air movement Cardiovascular: Regular rate, Regular Rhythm Abdomen: Bowel Sounds Present, Soft, Non Tender, No Hepato-splenomegaly Extremities: No clubbing, No edema Skin: Ulcer/ Wound Wound Measurements and Assessment WC - Nurse 1 - General Ulcer Measurement Start: 08/15/19 10:58 Freq: Status: Active Protocol: Activity Type Activity Date Activity User E-Sign Co-Sign Detail Recorded Client Recorded Date Recorded By Document 08/15/19 11:17 [id number] 08/15/19 11:19 CS 08/15/19 11:17 Wound Center Nurse 1 [Ulcer Assessment] #1 BUTTOCKS -Combined with other wound No -Current Size (cm) - Length 0.1 -Current Size (cm) - Width 0.1 -Current Size (cm) - Depth 0.1 -Total Square Cm 0.01 -Date of Last Picture (Recall this 08/15/19 field) -Photo Taken Yes -Epithelialization Medium 34-66% -Tunneling No -Undermining/Tunneling No -Circular Undermining No -Necrosis Amt Large (67-100%) -Necrotic Tissue Type Adherent Slough -Temperature (Mary-wound Skin No Abnormality Appearance) (Pt Warm) -Tenderness on Palpation (Mary-wound No Skin Appearance) -Ulcer Cleansing Rinsed/ Irrigated with Saline -Foul Odor after Cleansing No -Anesthetic Used 4% Lidocaine Solution [Edema Assessment] -Lower Limb Edema Present NA Musculoskeletal: No Tenderness to Palpation of Joints or Extremities Lymphatic: No Cervical, Supraclavicular, or Inguinal Adenopathy Neurological: Cranial nerves II-XII grossly intact, Neuro grossly intact Psych/Mental Status: Normal Affect, Appropriate Debridement Note Wound debrided: Right lateral foot Type of Debridement: Excisional debridement Anesthesia Used: 5% Lidocaine Gel Depth: Down to and including healthy tissue, in the subcutaneous layer Percentage of wound debrided: 100 Instrument Used: #15 blade - Scored Tissue Removed: Necrotic Severity: Limited To Skin Breakdown Amount of bleeding with debridement: None Bleeding Controlled with: Pressure Patient tolerated procedure well Assessment/Plan Active Problems (Last Updated 07/30/19 @ 14:18 by Pinky Snyder) Decubitus ulcer of buttock, stage 2 (Acute) Decubitus ulcer of right foot, unstageable (Acute) Assessment: Decubitus ulcers bilateral buttock cheeks stage. Stage triple ulcer right lateral foot Plan: Santyl to the base of the right lateral foot cover with Adaptic and gauze dressing daily. Xeroform dressings to bilateral butt cheeks cover with Adaptic and should use Tolnafanate or Z easorb powder which is a miconazole powder to the groin and surrounding areas that have fungus. follow up in One week. Continue to use gel pad and buttocks area and keep off back as much as possible
== END 2019-08-18 23:59 ==
LOC: WC 10:44
PROVIDERS: Family Provider Family Medicine; PCP Family Medicine; Visit Provider Nurse Practitioner
DX: L89.322 Pressure ulcer of left buttock, stage 2 (principal); L89.312 Pressure ulcer of right buttock, stage 2; L89.890 Pressure ulcer of other site, unstageable; I69.151 Hemiplegia and hemiparesis following nontraumatic intracerebral hemorrhage affecting right dominant side; I69.122 Dysarthria following nontraumatic intracerebral hemorrhage; I48.20 Chronic atrial fibrillation, unspecified; I48.0 Paroxysmal atrial fibrillation; I10 Essential (primary) hypertension
CPT/HCPCS: 11042; 99213; G0463

== ENCOUNTER 2019-09-05 11:15 | Outpatient (RCR) | payer MEDICARE, SELFPAY ==
[2019-08-19 01:23] VITALS: BP 114/66; PULSE 77; RESP 16; TEMP 36.5
[2019-08-22 11:58] VITALS: BP 130/81; PULSE 68; RESP 18; TEMP 36.1; BMI 55.3
--- NOTE | 2019-08-22 12:29 | PCM.WC.PN ---
(1) Decubitus ulcer of buttock, stage 2 Status: Acute Current Visit: Yes Code(s): L89.302 - Pressure ulcer of unspecified buttock, stage 2 (2) Decubitus ulcer of right foot, unstageable Status: Acute Current Visit: Yes Code(s): L89.890 - Pressure ulcer of other site, unstageable Type of Wound Date of Service: 08/22/19 Chief Complaint: Follow-up on bilateral buttocks cheeks sheering that is developed on both buttocks with scabbing and baseline fungal infection and skin. 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 There is no open area but he has developed a fungal infection. If then suggest a look at his right foot she is concerned about an area on the right lateral under the right little toe. And it is an unstageable necrotic decubitus ulcer from pressure. Progress of Wound: Today the buttocks wounds are healed. The right lateral foot has been deroofed with Santyl and is now has good tissue underneath that we can start healing and will change from Santyl over to Promogran. No sign of infection noted. - Physical Exam Vital Signs Temp Pulse Resp BP 97 F L 68 18 130/81 H 08/22/19 11:58 08/22/19 11:58 08/22/19 11:58 08/22/19 11:58 General: Oriented x3, Cooperative, Well developed HEENT: Atraumatic, PERRLA Oral: Moist Mucosa Neck: Supple, No JVD Lungs: Clear to auscultation, Normal air movement Cardiovascular: Regular rate, Regular Rhythm Abdomen: Bowel Sounds Present, Soft, Non Tender, No Hepato-splenomegaly Extremities: No clubbing, No edema Skin: Ulcer/ Wound - Right lateral foot ulcer was unstageable now is resolving Wound Measurements and Assessment WC - Nurse 1 - General Ulcer Measurement Start: 08/22/19 11:58 Freq: Status: Active Protocol: Activity Type Activity Date Activity User E-Sign Co-Sign Detail Recorded Client Recorded Date Recorded By Document 08/22/19 11:58 RB [id number] 08/22/19 12:02 RB 08/22/19 11:58 Wound Center Nurse 1 [Ulcer Assessment] #3 right lateral foot -Combined with other wound No -Current Size (cm) - Length 1.6 -Current Size (cm) - Width 0.9 -Current Size (cm) - Depth 0.1 -Total Square Cm 1.44 -Tunneling No -Undermining/Tunneling No -Circular Undermining No -Exudate Amt Small -Exudate Type Serosanguineous -Wound Margin Distinct, Outline Attached -Granulation Amt Medium (34-66%) -Granulation Quality [place] -Slough/Fibrin Yes -Necrosis Amt Small (1-33%) -Necrotic Tissue Type Adherent Slough -Structure Exposed N/A -Texture (Mary-wound Skin Appearance) Assessed -Moisture (Mary-wound Skin Appearance Assessed, ) Maceration -Color (Mary-wound Skin Appearance) Assessed -Temperature (Mary-wound Skin No Abnormality Appearance) (Pt Warm) -Tenderness on Palpation (Mary-wound No Skin Appearance) -Ulcer Cleansing Wound Cleanser -Foul Odor after Cleansing No -Anesthetic Used 4% Lidocaine Solution #2 left buttock -Combined with other wound No -Current Size (cm) - Length 0.1 -Current Size (cm) - Width 0.1 -Current Size (cm) - Depth 0.1 -Total Square Cm 0.01 -Tunneling No -Undermining/Tunneling No -Circular Undermining No -Exudate Amt Small -Exudate Type Serosanguineous -Wound Margin Flat & Intact -Granulation Amt Large (67-100%) -Granulation Quality [place],Red -Slough/Fibrin Yes -Necrosis Amt Small (1-33%) -Necrotic Tissue Type Adherent Slough -Structure Exposed N/A -Texture (Mary-wound Skin Appearance) Assessed, Friable -Moisture (Mary-wound Skin Appearance Assessed ) -Color (Mary-wound Skin Appearance) Assessed -Temperature (Mary-wound Skin No Abnormality Appearance) (Pt Warm) -Tenderness on Palpation (Mary-wound No Skin Appearance) -Ulcer Cleansing Wound Cleanser -Foul Odor after Cleansing No -Anesthetic Used 4% Lidocaine Solution #1 right BUTTOCKS -Combined with other wound No -Current Size (cm) - Length 0.1 -Current Size (cm) - Width 0.1 -Current Size (cm) - Depth 0.1 -Total Square Cm 0.01 -Tunneling No -Undermining/Tunneling No -Circular Undermining No -Exudate Amt Small -Exudate Type Serosanguineous -Wound Margin Flat & Intact -Granulation Amt Medium (34-66%) -Granulation Quality [place] -Slough/Fibrin Yes -Necrosis Amt Small (1-33%) -Necrotic Tissue Type Adherent Slough -Structure Exposed N/A -Texture (Mary-wound Skin Appearance) Assessed -Moisture (Mary-wound Skin Appearance Maceration ) -Color (Mary-wound Skin Appearance) Assessed -Temperature (Mary-wound Skin No Abnormality Appearance) (Pt Warm) -Tenderness on Palpation (Mary-wound No Skin Appearance) -Ulcer Cleansing Wound Cleanser -Foul Odor after Cleansing No -Anesthetic Used 4% Lidocaine Solution WC - Nurse 2 - General Ulcer CM Notes Start: 08/22/19 11:58 Freq: Status: Active Protocol: Activity Type Activity Date Activity User E-Sign Co-Sign Detail Recorded Client Recorded Date Recorded By Document 08/22/19 12:06 MW [id number] 08/22/19 12:11 MW 08/22/19 12:06 Wound Center Nurse 2 [Procedure/Treatment] #3 right lateral foot -Time 12:06 -Correct Patient Yes -Correct Side, Site, Position Yes -Correct Procedure Yes -Procedure Performed Yes -Type of Procedure Debridement -Clinical Debridement Subcutaneous -Post Debridement Size (cm) - Length 1.5 -Post Debridement Size (cm) - Width 1.0 -Post Debridement Size (cm) - Depth 0.1 -Total Square Cm 1.50 -Wound/Ulcer Outcome Not Healed -Ulcer Cleansing Rinsed/ Irrigated with Saline -Foul Odor after Cleansing No -Bioengineered Tissue No -Bleeding Controlled with Pressure -Offloading No -Treatment Response Procedure Tolerated Well #2 left buttock -Time 12:10 -Correct Patient Yes -Correct Side, Site, Position Yes -Correct Procedure Yes -Procedure Performed No -Post Debridement Size (cm) - Length 0 -Post Debridement Size (cm) - Width 0 -Post Debridement Size (cm) - Depth 0 -Total Square Cm 0 -Wound/Ulcer Outcome Healed- Epithelialized #1 right BUTTOCKS -Time 12:10 -Correct Patient Yes -Correct Side, Site, Position Yes -Correct Procedure Yes -Procedure Performed No -Post Debridement Size (cm) - Length 0 -Post Debridement Size (cm) - Width 0 -Post Debridement Size (cm) - Depth 0 -Total Square Cm 0 -Wound/Ulcer Outcome Healed- Epithelialized [See Physician Procedure note for Specifics] Pain Scale: 0-10 Numeric [Pain] -Is Patient Pain Free? Yes Musculoskeletal: No Tenderness to Palpation of Joints or Extremities Lymphatic: No Cervical, Supraclavicular, or Inguinal Adenopathy Neurological: Cranial nerves II-XII grossly intact, Neuro grossly intact Psych/Mental Status: Normal Affect, Appropriate Debridement Note Post-Debridement Measurements/Treatment WC - Nurse 2 - General Ulcer CM Notes Start: 08/22/19 11:58 Freq: Status: Active Protocol: Activity Type Activity Date Activity User E-Sign Co-Sign Detail Recorded Client Recorded Date Recorded By Document 08/22/19 12:06 MW [id number] 08/22/19 12:11 MW 08/22/19 12:06 Wound Center Nurse 2 #3 right lateral foot -Time 12:06 -Correct Patient Yes -Correct Side, Site, Position Yes -Correct Procedure Yes -Procedure Performed Yes -Type of Procedure Debridement -Clinical Debridement Subcutaneous -Post Debridement Size (cm) - Length 1.5 -Post Debridement Size (cm) - Width 1.0 -Post Debridement Size (cm) - Depth 0.1 -Total Square Cm 1.50 -Wound/Ulcer Outcome Not Healed -Ulcer Cleansing Rinsed/ Irrigated with Saline -Foul Odor after Cleansing No -Bioengineered Tissue No -Bleeding Controlled with Pressure -Offloading No -Treatment Response Procedure Tolerated Well #2 left buttock -Time 12:10 -Correct Patient Yes -Correct Side, Site, Position Yes -Correct Procedure Yes -Procedure Performed No -Post Debridement Size (cm) - Length 0 -Post Debridement Size (cm) - Width 0 -Post Debridement Size (cm) - Depth 0 -Total Square Cm 0 -Wound/Ulcer Outcome Healed- Epithelialized #1 right BUTTOCKS -Time 12:10 -Correct Patient Yes -Correct Side, Site, Position Yes -Correct Procedure Yes -Procedure Performed No -Post Debridement Size (cm) - Length 0 -Post Debridement Size (cm) - Width 0 -Post Debridement Size (cm) - Depth 0 -Total Square Cm 0 -Wound/Ulcer Outcome Healed- Epithelialized Pain Scale: 0-10 Numeric Is Patient Pain Free? Yes Wound debrided: Right lateral foot Type of Debridement: Excisional debridement Anesthesia Used: 5% Lidocaine Gel Depth: Down to and including healthy tissue, in the subcutaneous layer Percentage of wound debrided: 100 Instrument Used: 7mm curette Tissue Removed: Callus and fibrin Severity: Fat Layer Exposed Amount of bleeding with debridement: Mild Bleeding Controlled with: Compression and gauze Patient tolerated procedure well Assessment/Plan Active Problems (Last Updated 07/30/19 @ 14:18 by Pinky Snyder) Decubitus ulcer of buttock, stage 2 (Acute) Decubitus ulcer of right foot, unstageable (Acute) Assessment: Decubitus ulcers bilateral buttock cheeks stage. Stage triple ulcer right lateral foot Plan: Start Promogran to right lateral foot with Adaptic gauze dressing over top. Use Xeroform dressings to bilateral butt cheeks cover with Adaptic and should use Tolnafanate or Z easorb powder which is a miconazole powder to the groin and surrounding areas that have fungus as needed. follow up in One week. Continue to use gel pad and buttocks area and keep off back as much as possible
[2019-08-29 12:11] VITALS: BP 141/66; PULSE 68; RESP 18; TEMP 36.6; BMI 55.3
--- NOTE | 2019-08-29 12:55 | PN.PCM_ITS ---
(1) Decubitus ulcer of buttock, stage 2 Status: Acute Current Visit: No Code(s): L89.302 - Pressure ulcer of unspecified buttock, stage 2 (2) Decubitus ulcer of right foot, unstageable Status: Acute Current Visit: Yes Code(s): L89.890 - Pressure ulcer of other site, unstageable Type of Wound Date of Service: 08/29/19 Chief Complaint: Follow-up on bilateral buttocks cheeks sheering that is developed on both buttocks with scabbing and baseline fungal infection and skin. 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 There is no open area but he has developed a fungal infection. If then suggest a look at his right foot she is concerned about an area on the right lateral under the right little toe. And it is an unstageable necrotic decubitus ulcer from pressure. Progress of Wound: Today the buttocks wounds are healed. The right lateral foot has been deroofed with Santyl and is now has good tissue underneath that we can start healing and will change from Santyl over to Promogran. Some yellow slough has been removed with sharps and we will continue using Promogran. - Physical Exam Vital Signs Temp Pulse Resp BP 97.8 F 68 18 141/66 H 08/29/19 12:11 08/29/19 12:11 08/29/19 12:11 08/29/19 12:11 General: Oriented x3, Cooperative, Well developed HEENT: Atraumatic, PERRLA Oral: Moist Mucosa Neck: Supple, No JVD Lungs: Clear to auscultation, Normal air movement Cardiovascular: Regular rate, Regular Rhythm Abdomen: Bowel Sounds Present, Soft, Non Tender, No Hepato-splenomegaly Extremities: No clubbing, No edema Skin: Ulcer/ Wound - Right lateral foot ulcer Wound Measurements and Assessment WC - Nurse 1 - General Ulcer Measurement Start: 08/22/19 11:58 Freq: Status: Active Protocol: Activity Type Activity Date Activity User E-Sign Co-Sign Detail Recorded Client Recorded Date Recorded By Document 08/29/19 12:11 RB [id number] 08/29/19 12:12 RB 08/29/19 12:11 Wound Center Nurse 1 [Ulcer Assessment] #3 right lateral foot -Combined with other wound No -Current Size (cm) - Length 1.2 -Current Size (cm) - Width 0.8 -Current Size (cm) - Depth 0.2 -Total Square Cm 0.96 -Tunneling No -Undermining/Tunneling No -Circular Undermining No -Exudate Amt Small -Exudate Type Serosanguineous -Wound Margin Flat & Intact -Granulation Amt Small (1-33%) -Granulation Quality [place] -Slough/Fibrin Yes -Necrosis Amt Medium (34-66%) -Necrotic Tissue Type Adherent Slough -Texture (Mary-wound Skin Appearance) Assessed -Moisture (Mary-wound Skin Appearance Assessed ) -Color (Mary-wound Skin Appearance) Assessed, Erythema -Temperature (Mary-wound Skin No Abnormality Appearance) (Pt Warm) -Tenderness on Palpation (Mary-wound No Skin Appearance) -Ulcer Cleansing Wound Cleanser -Foul Odor after Cleansing No -Anesthetic Used 5% Lidocaine Gel WC - Nurse 2 - General Ulcer CM Notes Start: 08/22/19 11:58 Freq: Status: Active Protocol: Activity Type Activity Date Activity User E-Sign Co-Sign Detail Recorded Client Recorded Date Recorded By Document 08/29/19 12:23 MW [id number] 08/29/19 12:24 MW 08/29/19 12:23 Wound Center Nurse 2 [Procedure/Treatment] -Time 12:23 -Correct Patient Yes -Correct Side, Site, Position Yes -Correct Procedure Yes -Procedure Performed Yes -Type of Procedure Debridement -Clinical Debridement Subcutaneous -Post Debridement Size (cm) - Length 1.0 -Post Debridement Size (cm) - Width 0.6 -Post Debridement Size (cm) - Depth 0.2 -Total Square Cm 0.60 -Wound/Ulcer Outcome Not Healed -Ulcer Cleansing Rinsed/ Irrigated with Saline -Foul Odor after Cleansing No -Bioengineered Tissue No -Bleeding Controlled with Pressure -Offloading No -Treatment Response Procedure Tolerated Well [See Physician Procedure note for Specifics] Pain Scale: 0-10 Numeric [Pain] -Is Patient Pain Free? Yes Musculoskeletal: No Tenderness to Palpation of Joints or Extremities Lymphatic: No Cervical, Supraclavicular, or Inguinal Adenopathy Neurological: Cranial nerves II-XII grossly intact, Neuro grossly intact Psych/Mental Status: Normal Affect, Appropriate Debridement Note Post-Debridement Measurements/Treatment WC - Nurse 2 - General Ulcer CM Notes Start: 08/22/19 11:58 Freq: Status: Active Protocol: Activity Type Activity Date Activity User E-Sign Co-Sign Detail Recorded Client Recorded Date Recorded By Document 08/22/19 12:06 MW [id number] 08/22/19 12:11 MW Document 08/29/19 12:23 MW [id number] 08/29/19 12:24 MW 08/22/19 08/29/19 12:06 12:23 Wound Center Nurse 2 #3 right lateral foot -Time 12:06 12:23 -Correct Patient Yes Yes -Correct Side, Site, Position Yes Yes -Correct Procedure Yes Yes -Procedure Performed Yes Yes -Type of Procedure Debridement Debridement -Clinical Debridement Subcutaneous Subcutaneous -Post Debridement Size (cm) - Length 1.5 1.0 -Post Debridement Size (cm) - Width 1.0 0.6 -Post Debridement Size (cm) - Depth 0.1 0.2 -Total Square Cm 1.50 0.60 -Wound/Ulcer Outcome Not Healed Not Healed -Ulcer Cleansing Rinsed/ Rinsed/ Irrigated with Irrigated with Saline Saline -Foul Odor after Cleansing No No -Bioengineered Tissue No No -Bleeding Controlled with Pressure Pressure -Offloading No No -Treatment Response Procedure Procedure Tolerated Well Tolerated Well #2 left buttock -Time 12:10 -Correct Patient Yes -Correct Side, Site, Position Yes -Correct Procedure Yes -Procedure Performed No -Post Debridement Size (cm) - Length 0 -Post Debridement Size (cm) - Width 0 -Post Debridement Size (cm) - Depth 0 -Total Square Cm 0 -Wound/Ulcer Outcome Healed- Epithelialized #1 right BUTTOCKS -Time 12:10 -Correct Patient Yes -Correct Side, Site, Position Yes -Correct Procedure Yes -Procedure Performed No -Post Debridement Size (cm) - Length 0 -Post Debridement Size (cm) - Width 0 -Post Debridement Size (cm) - Depth 0 -Total Square Cm 0 -Wound/Ulcer Outcome Healed- Epithelialized Pain Scale: 0-10 Numeric Is Patient Pain Free? Yes Yes Wound debrided: Lateral foot Laterality: Right Wound Grade/Stage: Stage II Type of Debridement: Excisional debridement Anesthesia Used: 5% Lidocaine Gel Depth: Down to and including healthy tissue, in the subcutaneous layer Percentage of wound debrided: 100 Instrument Used: 7mm curette, #15 blade Tissue Removed: Slough Amount of bleeding with debridement: Mild Bleeding Controlled with: Compression and gauze Patient tolerated procedure well Assessment/Plan Active Problems (Last Updated 07/30/19 @ 14:18 by Pinky Snyder) Decubitus ulcer of right foot, unstageable (Acute) Assessment: Decubitus ulcers bilateral buttock cheeks stage. Stage triple ulcer right lateral foot Plan: Start Promogran to right lateral foot with Adaptic gauze dressing over top. follow up in One week. Continue to use gel pad and buttocks area and keep off back as much as possible
[2019-09-05 11:31] VITALS: BP 148/78; PULSE 63; RESP 18; TEMP 35.7; BMI 55.3
--- NOTE | 2019-09-05 12:46 | PCM.WC.PN ---
(1) Decubitus ulcer of buttock, stage 2 Status: Acute Current Visit: No Code(s): L89.302 - Pressure ulcer of unspecified buttock, stage 2 (2) Decubitus ulcer of right foot, unstageable Status: Acute Current Visit: Yes Code(s): L89.890 - Pressure ulcer of other site, unstageable (3) Decubitus ulcer of heel Status: Acute Current Visit: Yes Qualifiers: Pressure injury stage: stage 2 Code(s): L89.609 - Pressure ulcer of unspecified heel, unspecified stage Type of Wound Date of Service: 09/05/19 Chief Complaint: Follow-up on bilateral buttocks cheeks sheering that is developed on both buttocks with scabbing and baseline fungal infection and skin. 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 There is no open area but he has developed a fungal infection. If then suggest a look at his right foot she is concerned about an area on the right lateral under the right little toe. And it is an unstageable necrotic decubitus ulcer from pressure. Progress of Wound: Today the buttocks wounds are healed. The right lateral foot has been deroofed with Santyl and we tried using Promogran but keeps building up with slough so he can go back to Santyl. Patient has showed us a new pressure ulcer on the left lateral heel that is partially scabbed and open stage II shallow not deep patient shira in the bed when he tries to push using the urinal. - Physical Exam Vital Signs Temp Pulse Resp BP 96.2 F L 63 18 148/78 H 09/05/19 11:31 09/05/19 11:31 09/05/19 11:31 09/05/19 11:31 General: Oriented x3, Cooperative, Well developed HEENT: Atraumatic, PERRLA Oral: Moist Mucosa Neck: Supple, No JVD Lungs: Clear to auscultation, Normal air movement Cardiovascular: Regular rate, Regular Rhythm Abdomen: Bowel Sounds Present, Soft, Non Tender, No Hepato-splenomegaly Extremities: No clubbing, No edema Skin: Ulcer/ Wound - Right lateral foot left lateral heel Wound Measurements and Assessment WC - Nurse 1 - General Ulcer Measurement Start: 08/22/19 11:58 Freq: Status: Active Protocol: Activity Type Activity Date Activity User E-Sign Co-Sign Detail Recorded Client Recorded Date Recorded By Document 09/05/19 11:31 RB [id number] 09/05/19 11:38 RB 09/05/19 11:31 Wound Center Nurse 1 [Ulcer Assessment] #3 right lateral foot -Combined with other wound No -Current Size (cm) - Length 1.1 -Current Size (cm) - Width 0.6 -Current Size (cm) - Depth 0.2 -Total Square Cm 0.66 -Tunneling No -Undermining/Tunneling No -Circular Undermining No -Exudate Amt Small -Exudate Type Serosanguineous -Wound Margin Flat & Intact -Granulation Amt Small (1-33%) -Granulation Quality [address] -Slough/Fibrin Yes -Necrosis Amt Large (67-100%) -Necrotic Tissue Type Adherent Slough -Structure Exposed N/A -Texture (Mary-wound Skin Appearance) Assessed, Scarring -Moisture (Mary-wound Skin Appearance Assessed ) -Color (Mary-wound Skin Appearance) Assessed -Temperature (Mary-wound Skin No Abnormality Appearance) (Pt Warm) -Tenderness on Palpation (Mary-wound No Skin Appearance) -Ulcer Cleansing Wound Cleanser -Foul Odor after Cleansing No -Anesthetic Used 5% Lidocaine Gel WC - Nurse 2 - General Ulcer CM Notes Start: 08/22/19 11:58 Freq: Status: Active Protocol: Activity Type Activity Date Activity User E-Sign Co-Sign Detail Recorded Client Recorded Date Recorded By Document 09/05/19 11:45 MW [id number] 09/05/19 11:53 MW 09/05/19 11:45 Wound Center Nurse 2 [Procedure/Treatment] #4 left lateral heel -Time 11:47 -Correct Patient Yes -Correct Side, Site, Position Yes -Correct Procedure Yes -Procedure Performed Yes -Type of Procedure Debridement -Clinical Debridement Subcutaneous -Post Debridement Size (cm) - Length 0.6 -Post Debridement Size (cm) - Width 0.8 -Post Debridement Size (cm) - Depth 0.1 -Total Square Cm 0.48 -Wound/Ulcer Outcome Not Healed -Ulcer Cleansing Rinsed/ Irrigated with Saline -Foul Odor after Cleansing No -Bioengineered Tissue No -Bleeding Controlled with Pressure -Offloading No -Treatment Response Procedure Tolerated Well #3 right lateral foot -Time 11:45 -Correct Patient Yes -Correct Side, Site, Position Yes -Correct Procedure Yes -Procedure Performed Yes -Type of Procedure Debridement -Clinical Debridement Subcutaneous -Post Debridement Size (cm) - Length 1.2 -Post Debridement Size (cm) - Width 0.7 -Post Debridement Size (cm) - Depth 0.2 -Total Square Cm 0.84 -Wound/Ulcer Outcome Not Healed -Ulcer Cleansing Rinsed/ Irrigated with Saline -Foul Odor after Cleansing No -Bioengineered Tissue No -Bleeding Controlled with Pressure -Offloading No -Treatment Response Procedure Tolerated Well [See Physician Procedure note for Specifics] Pain Scale: 0-10 Numeric [Pain] -Is Patient Pain Free? Yes Musculoskeletal: No Tenderness to Palpation of Joints or Extremities Lymphatic: No Cervical, Supraclavicular, or Inguinal Adenopathy Neurological: Cranial nerves II-XII grossly intact, Neuro grossly intact Psych/Mental Status: Normal Affect, Appropriate Debridement Note Post-Debridement Measurements/Treatment WC - Nurse 2 - General Ulcer CM Notes Start: 08/22/19 11:58 Freq: Status: Active Protocol: Activity Type Activity Date Activity User E-Sign Co-Sign Detail Recorded Client Recorded Date Recorded By Document 08/22/19 12:06 MW [id number] 08/22/19 12:11 MW Document 08/29/19 12:23 MW [id number] 08/29/19 12:24 MW Document 09/05/19 11:45 MW [id number] 09/05/19 11:53 MW 08/22/19 08/29/19 09/05/19 12:06 12:23 11:45 Wound Center Nurse 2 #4 left lateral heel -Time 11:47 -Correct Patient Yes -Correct Side, Site, Position Yes -Correct Procedure Yes -Procedure Performed Yes -Type of Procedure Debridement -Clinical Debridement Subcutaneous -Post Debridement Size (cm) - Length 0.6 -Post Debridement Size (cm) - Width 0.8 -Post Debridement Size (cm) - Depth 0.1 -Total Square Cm 0.48 -Wound/Ulcer Outcome Not Healed -Ulcer Cleansing Rinsed/ Irrigated with Saline -Foul Odor after Cleansing No -Bioengineered Tissue No -Bleeding Controlled with Pressure -Offloading No -Treatment Response Procedure Tolerated Well #3 right lateral foot -Time 12:06 12:23 11:45 -Correct Patient Yes Yes Yes -Correct Side, Site, Position Yes Yes Yes -Correct Procedure Yes Yes Yes -Procedure Performed Yes Yes Yes -Type of Procedure Debridement Debridement Debridement -Clinical Debridement Subcutaneous Subcutaneous Subcutaneous -Post Debridement Size (cm) - Length 1.5 1.0 1.2 -Post Debridement Size (cm) - Width 1.0 0.6 0.7 -Post Debridement Size (cm) - Depth 0.1 0.2 0.2 -Total Square Cm 1.50 0.60 0.84 -Wound/Ulcer Outcome Not Healed Not Healed Not Healed -Ulcer Cleansing Rinsed/ Rinsed/ Rinsed/ Irrigated with Irrigated with Irrigated with Saline Saline Saline -Foul Odor after Cleansing No No No -Bioengineered Tissue No No No -Bleeding Controlled with Pressure Pressure Pressure -Offloading No No No -Treatment Response Procedure Procedure Procedure Tolerated Well Tolerated Well Tolerated Well #2 left buttock -Time 12:10 -Correct Patient Yes -Correct Side, Site, Position Yes -Correct Procedure Yes -Procedure Performed No -Post Debridement Size (cm) - Length 0 -Post Debridement Size (cm) - Width 0 -Post Debridement Size (cm) - Depth 0 -Total Square Cm 0 -Wound/Ulcer Outcome Healed- Epithelialized #1 right BUTTOCKS -Time 12:10 -Correct Patient Yes -Correct Side, Site, Position Yes -Correct Procedure Yes -Procedure Performed No -Post Debridement Size (cm) - Length 0 -Post Debridement Size (cm) - Width 0 -Post Debridement Size (cm) - Depth 0 -Total Square Cm 0 -Wound/Ulcer Outcome Healed- Epithelialized Pain Scale: 0-10 Numeric Is Patient Pain Free? Yes Yes Yes Wound debrided: Right lateral foot Laterality: Right Wound Grade/Stage: Stage III Type of Debridement: Excisional debridement Anesthesia Used: 5% Lidocaine Gel Depth: Down to and including healthy tissue, in the subcutaneous layer Percentage of wound debrided: 100 Instrument Used: 5mm curette Tissue Removed: Slough and fibrin Severity: Limited To Skin Breakdown Amount of bleeding with debridement: Mild Bleeding Controlled with: Compression and gauze Patient tolerated procedure well - Additional Wound Wound debrided: Left lateral heel Laterality: Left Wound Grade/Stage: Stage II Type of Debridement: Excisional debridement Anesthesia Used: 5% Lidocaine Gel Depth: Down to and including healthy tissue, in the subcutaneous layer Percentage of wound debrided: 100 Instrument Used: 5mm curette Tissue Removed: Fibrin and devitalized tissue Severity: Limited To Skin Breakdown Amount of bleeding with debridement: None Bleeding Controlled with: Pressure Patient tolerated procedure: Patient tolerated procedure well Assessment/Plan Active Problems (Last Updated 07/30/19 @ 14:18 by Pinky Snyder) Decubitus ulcer of right foot, unstageable (Acute) Decubitus ulcer of heel (Acute) Assessment: Decubitus ulcers bilateral buttock cheeks stage. Stage triple ulcer right lateral foot Plan: Start Santyl to right lateral foot with Adaptic and gauze dressing. Left lateral heel use Aquacel silver moistened Adaptic gauze dressing with a nurse Over top to protect heel. Continue to use gel pad and buttocks area and keep off back as much as possible. Follow-up September 20
== END 2019-09-18 23:59 ==
LOC: WC 11:15
PROVIDERS: Family Provider Family Medicine; PCP Family Medicine; Visit Provider Nurse Practitioner
DX: L89.322 Pressure ulcer of left buttock, stage 2 (principal); L89.312 Pressure ulcer of right buttock, stage 2; L89.890 Pressure ulcer of other site, unstageable
CPT/HCPCS: 11042; 99212; G0463

== ENCOUNTER 2019-10-19 12:30 | Outpatient (RCR) | payer MEDICARE, SELFPAY ==
[2019-06-11 19:52] VITALS: BMI 24.6
--- NOTE | 2019-06-20 14:12 | HP.PTREVAL ---
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 Please see the progress note below for an update on the physical therapy plan of care! Subjective: Pt no more pain than usual. Objective/Function: Pt is now Mod A x 1 with car transfers, and was able to ambulate 39' up hill on a cement sidewalk until needing to rest. Pt can now ambulate 84' with CGAx1 until needing to rest. L LE MMT 5/5 throughout, R LE hip flex= 1/5, hip abd and add 3+/5, knee ext 3+/5. Pt is progressing well towards Rx goals and would benefit from further skilled PT for transfer training and gait progresssion. Plan Plan: Cont to work on gait training and transfer training Goals Goal 1:: ncrease B LE strength x 1 grade to aid with transfers Goal Time Frame: 4-6 Weeks Goal Progress: Progressing Goal 2:: Pt will be able to transfer sit to stand with mod A x 1 to aid with I Goal Time Frame: 4-6 Weeks Goal Progress: Goal Met Goal 3:: I with HEP Goal Time Frame: 4-6 Weeks Goal Progress: Goal Met Goal 4:: Pt will be Min A x 1 with car transfers to aid becoming more I Goal Progress: Progressing Goal 5:: Pt will ambulate 200' with CGAx1 and WW to aid with community ambulation Goal Progress: Progressing Anticipated Interventions Please do not hesitate to contact me at [phone] by phone or if you have questions or concerns regarding this new plan of care! Sincerely, Darin Ventura, PT, ATC
--- NOTE | 2019-09-03 15:14 | HP.PTREVAL ---
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 Please see the progress note below for an update on the physical therapy plan of care! Subjective: Pt reports he is not in pain this date. Pt reports he would like to try walking without having to use the platform for his walker today Objective/Function: MMT: R LE is grossly 3-/5 in available ROM. L LE is 5/5 throughout. Sit to stand to sit transfers: Pt is still mod A x 1 and is still unsteady. Pt is able to ambulate 232 ft with WW and CGA x 1. Pt continues to show great progress owards Rx goals Plan Plan: Cont with chair transfers, step ups, and LE strengthening Goals Goal 1:: ncrease B LE strength x 1 grade to aid with transfers Goal Time Frame: 4-6 Weeks Goal Progress: Progressing Goal 2:: Pt will be able to transfer sit to stand with mod A x 1 to aid with I Goal Time Frame: 4-6 Weeks Goal Progress: Goal Met Goal 3:: I with HEP Goal Time Frame: 4-6 Weeks Goal Progress: Goal Met Goal 4:: Pt will be Min A x 1 with car transfers to aid becoming more I Goal Progress: Progressing Goal 5:: Pt will ambulate 200' with CGAx1 and WW to aid with community ambulation Goal Progress: Progressing Anticipated Interventions Please do not hesitate to contact me at [phone] by phone or if you have questions or concerns regarding this new plan of care! Sincerely, Darin Ventura, PT, ATC
--- NOTE | 2019-10-05 14:05 | HP.PTREVAL ---
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 Please see the progress note below for an update on the physical therapy plan of care! Subjective: Pt is very tired this date Objective/Function: Pt able to ambulate 60' until having to sit down this date. Sit to stand transfers are still Mod A x 1. R LE MMT: Knee and hip flex= 0/5. R knee ext, hip abd, and hip add 3/5. Pt cont to show progress toward Rx goals. Plan Plan: Cont with chair transfers, step ups, and LE strengthening Goals Goal 1:: ncrease B LE strength x 1 grade to aid with transfers Goal Time Frame: 4-6 Weeks Goal Progress: Progressing Goal 2:: Pt will be able to transfer sit to stand with mod A x 1 to aid with I Goal Time Frame: 4-6 Weeks Goal Progress: Goal Met Goal 3:: I with HEP Goal Time Frame: 4-6 Weeks Goal Progress: Goal Met Goal 4:: Pt will be Min A x 1 with car transfers to aid becoming more I Goal Progress: Progressing Goal 5:: Pt will ambulate 200' with CGAx1 and WW to aid with community ambulation Goal Progress: Progressing Anticipated Interventions Please do not hesitate to contact me at [phone] by phone or if you have questions or concerns regarding this new plan of care! Sincerely, Darin Ventura, PT, ATC
--- NOTE | 2019-12-05 12:42 | HP.PT.NRP ---
GABRIELA REEVES was seen in my office for initial evaluation on . The following Plan of Care was established for this patient: For the Purpose of:: To improve decision making, To facilitate caregiver knowledge, To prevent re-injury, To improve ability to perform tasks related to life management This patient was last seen in our office . Pertinent comments regarding their Physical therapy will appear below: Pt's phoned the clinic to report this patient . At this point I will be discontinuing this patient from physical therapy. I would be happy to see this patient again in the future if found appropriate by the physician. Thank you! Darin Ventura, PT, ATC
== END 2019-10-19 19:00 | disposition home or self-care (01) ==
LOC: PT 12:30
PROVIDERS: Family Provider Family Medicine; PCP Family Medicine; Referring Provider Family Medicine; Visit Provider Family Medicine
DX: I61.9 Nontraumatic intracerebral hemorrhage, unspecified (principal); Z74.09 Other reduced mobility
CPT/HCPCS: 97110; 97116; 97164; 97530